=== PATIENT | male | born 1945 | race Caucasian/White ===

== ENCOUNTER → 2017-01-04 | Outpatient (CLI) | payer OTHER ==
[~2017-01-04] VITALS: Ht 172.7 cm; Wt 97.3 kg
[~2017-01-04] MED LIST: CELEBREX 200 M200 MG PO; CHANTIX1 MG PO; CLARITIN10 MG PO; CO Q-1010 MG PO; COZAAR 25 MG TA25 M1 PO; CYMBALTA60 MG PO; DESIPRAMINE HCL10 MG PO; DOLOPHINE HCL10 MG PO; FOLIC ACID1 MG PO; GABAPENTIN100 MG PO; GLUCOPHAGE500 MG PO; IRON325 PO; LOSARTAN-HCTZ1 EAC2 PO; LUNESTA3 MG PO; LYRICA 50 MG50 MG PO; LYRICA 75 MG CA75 MG PO; MEDROL DOSPAK21 TA1 PO; METHADONE HCL 110 M1 PO; METHADONE HCL5 MG PO; NEURONTIN 300300 M1 PO; NEURONTIN100 MG PO; NIACIN 500 MG500 M1 PO; OMEGA-31000 M1 PO; OMEGA-31000 MG PO; ONDANSETRON HCL4 M3 PO; OXCARBAZEPINE150 MG PO; PAMELOR10 MG PO; PREDNISONE 20 M20 MG PO; PRILOSEC 10MG C10 M1 PO; PROAIR HFA8.5 GM; SYMBICORT160 MCG/4. INH; VITAMIN E400 UNIT PO
--- NOTE | ~2017-01-04 | HPC ---
[facility] [place] [address] PAIN MANAGEMENT CONSULTATION Name: SHANDA ANTOINE Room #: REG [facility] JaeGiorgio.#: [id number] Admission: 01/04/17 Attend Phys: Addy Lainez MD Discharge: Date of : 49 Report #: [id number] THIS REPORT FOR: //name// CC: Addy Boateng DATE OF SERVICE: 01/04/2017 DATE OF REGISTRATION: 01/04/2017. REASON FOR VISIT: Followup visit for chronic severe peripheral neuropathy. SUBJECTIVE: The patient returns to pain clinic today for a followup visit. He is in the clinic for about 20 minutes. Pain is continuing in his feet. He describes it as severe. When asked the pain intensity, he says it is 12/10 like burning fire on his feet, although he is not using pain score correctly, his point is that the pain is still really severe despite his 25 mg of methadone per day. We have tried many other medications, methadone was the most effective what we have seen. He has not done very well with gabapentin. Today, we talked about transitioning to another anti-seizure medication as a trial, and I have suggested Trileptal 150 mg b.i.d. I am also going to change his methadone to 10 mg tablets 1 tablet 3 times a day, this will give him about 20% increase in his methadone as well. PHYSICAL EXAMINATION: GENERAL: He is pleasant, alert and oriented, shows no signs of overmedication. VITAL SIGNS: His blood pressure is 159/70, heart rate 76, respirations 20. EXTREMITIES: He has allodynia of the feet, decreased sensation, pins and needles and burning sensations with touch. IMPRESSION: 1. Severe peripheral neuropathy with diabetes. 2. Management of high-risk medication. By: [id number] Addy Lainez MD /nt
[2017-01-04 13:33] VITALS: BP 159/70
== END ==
LOC: PAIN 06:14
DX: E11.42 Type 2 diabetes mellitus with diabetic polyneuropathy (principal)

== ENCOUNTER → 2017-04-08 | Outpatient (CLI) | payer OTHER ==
[~2017-04-08] VITALS: Ht 175.3 cm; Wt 99.4 kg
[~2017-04-08] MED LIST changes: +ATIVAN0.5 MG PO
--- NOTE | ~2017-04-08 | HPC ---
[facility] [place] [address] PAIN MANAGEMENT CONSULTATION Name: SHANDA ANTOINE Room #: REG [facility] JaeGiorgioDemond.#: [id number] Admission: 04/08/17 Attend Phys: Addy Lainez MD Discharge: Date of : 47 Report #: [id number] THIS REPORT FOR: //name// CC: Addy CUETO DATE OF SERVICE: 04/08/2017 DATE OF SERVICE: 04/08/2017 Followup visit for medication management for chronic and severe peripheral neuropathy. The patient returns to pain clinic today and his was here with him. She reported independently that he has been miserable almost to tears with his pain. We have tried several medications. He has had multiple trials of neuropathic pain relievers. Most recently, Trileptal, which he was unable to tolerate well. I have given him methadone, which has been the only thing that has helped. I have increased it recently. He nonetheless complains of pain at about 8/10. Pain is quite severe with weightbearing. He has had cortisone injections with hopes that there may be a component of plantar fasciitis, this was not so helpful. He also has developed, what he describes as tired weakness in his legs. Pain is worse with standing and walking. He has recently been stressed due to of a family member. He continues to work. He avoids alcohol and tobacco. PHYSICAL EXAMINATION: Affect is mildly depressed. His blood pressure is 146/58, heart rate 79, respirations are 16, BMI is 32.4. He has some pain across his low back where he has had previous surgery in 2001. His bilateral lower leg pain beginning in the calves, symmetrical distribution with light touch discomfort. IMPRESSION: 1. Peripheral neuropathy. 2. Management of high risk medication. 3. Post-laminectomy syndrome. RECOMMENDATIONS: I will continue him on his methadone under terms of our agreement. He understands the importance of safeguarding all medications. We have talked each time about the opioid crisis in the [place] and the critical need for patients using medications under the direction of pain clinic to safeguard their medication. He shows no signs of addiction. [facility] [address] [place] [address] PAIN MANAGEMENT CONSULTATION Name: ANTOINESHANDA GALLAGHER [facility] [id number] Admission: 04/08/17 Attend Phys: Addy Lainez MD Discharge: Date of : 47 Report #: [id number] Methadone was renewed at a dose of 10 mg 3 times daily with release today prescriptions for 4 and 8 weeks. By: [id number] Addy Lainez MD /nt
[2017-04-08 13:40] VITALS: BP 146/58
== END ==
LOC: PAIN 07:08
DX: G62.9 Polyneuropathy, unspecified (principal)

== ENCOUNTER → 2017-07-05 | Outpatient (CLI) | payer OTHER ==
[~2017-07-05] VITALS: Ht 175.3 cm; Wt 98.4 kg
[~2017-07-05] MED LIST changes: +CLONIDINE HCL0.1 MG PO; +LOSARTAN POTAS100 MG PO; +NORVASC5 MG PO
--- NOTE | ~2017-07-05 | HPC ---
[facility] [place] [address] [place] [address] PAIN MANAGEMENT CONSULTATION Name: SHANDA ANTOINE Room #: REG NEELAM MoralesGiorgio#: [id number] Admission: 07/05/17 Attend Phys: Addy Lainez MD Discharge: Date of : 47 Report #: [id number] THIS REPORT FOR: //name// CC: Addy BOATENG DATE OF SERVICE: 07/05/[address] Steve Boateng. Followup visit for peripheral neuropathy. The patient presents to the pain clinic today and is doing better. I have encouraged him to get larger shoes and although this seems like a simple thing, I think that has had a lot to do with his decrease in pain. His pain score is a 3-4/10. He has had some recent increase in upper leg pain. He is being evaluated for vasculopathy. There may be a stenting procedure in the future. Did not pick this up on his physical exam earlier. The patient suffers from gastroesophageal reflux disease, nocturia, insomnia and depression. He has been better lately. PHYSICAL EXAMINATION: Blood pressure is 149/69, heart rate 72 and respirations 16. BMI 32.0. He is able to easily move from sitting to standing position and ambulate without too much difficulty. Pulses are diminished bilaterally in the lower extremities and palpable. Straight leg raising is negative. He has tenderness across the sole of his foot in the L5-S1 distribution. IMPRESSION: 1. History of chronic foot pain considered peripheral neuropathy. 2. Consideration of vasculopathy as a new pain generator. 3. Post-laminectomy syndrome with also consideration of radiculopathy. 4. Management of high risk medication under terms of an opioid agreement. PLAN: I renewed his methadone 10 mg 2 tablets in the morning and 1 tablet at bedtime for a total of 120 morphine milligram equivalents per day. Importance of safeguarding all medications discussed. Plan to follow up in the pain clinic in three months. By: [id number] Addy Lainez MD /nt
[2017-07-05 13:27] VITALS: BP 149/69
== END ==
LOC: PAIN 07:35
DX: M96.1 Postlaminectomy syndrome, not elsewhere classified (principal); Z79.899 Other long term (current) drug therapy

== ENCOUNTER → 2017-09-30 | Outpatient (CLI) | payer OTHER ==
[~2017-09-30] VITALS: Ht 175.3 cm; Wt 99.8 kg
[~2017-09-30] MED LIST changes: +HYTRIN 2MG CAPSU2 MG PO; +LISINOPRIL2.5 M1 PO; +VITAMIN D1000 UNI1 PO
--- NOTE | ~2017-09-30 | HPC ---
[facility] [place] [address] PAIN MANAGEMENT CONSULTATION Name: SHANDA ANTOINE Room #: REG Ethan Gillis#: [id number] Admission: 09/30/17 Attend Phys: Addy Lainez MD Discharge: Date of : 47 Report #: [id number] THIS REPORT FOR: //name// CC: Addy CUETO DATE OF SERVICE: 09/30/2017 REASON FOR VISIT: Followup visit for severe peripheral neuropathy. HISTORY OF PRESENT ILLNESS: The patient returns to pain clinic for renewal of his medications. He has been on a stable dose of methadone, which has provided good control of his neuropathy. He had a trial recently where he tried to go off his methadone. He noted significant increases in his peripheral neuropathy pain, so much so that he was unable to bear weight on his feet. Currently, he takes his medication 20 mg in the morning and 10 mg at bedtime. Now, the calculation for methadone is 4:1 for morphine, so this is 120 morphine milligram equivalents. We have found that this correlation seems not to work very well for patients who showed no significant side effects or evidence of overmedication. There is no craving for this drug. There is no evidence of drug seeking. He simply grateful for the pain relief that it provides. He denies any significant side effects. He is unable to take other medications including anti-inflammatory drugs due to gastroesophageal reflux disease. We have tried a number of other neuropathic medicines and settled on a combination of methadone along with gabapentin, which has worked fairly effectively now for several years. We reviewed his written opioid agreement, the CDC guideline and the opioid crisis in the [place]. He understands clearly his responsibilities. PQRS REVIEW: Shows the patient has primarily neuropathy, not arthritis, other than some temporomandibular joint pain, which is considered osteoarthritis of that joint. He has not gained any weight, but his weight is slightly above the obesity level at 32.5 BMI. Blood pressure is 142/64 and heart rate 85. He is on medication chronically for blood pressure. MEDICATIONS: All medications were reviewed and reconciled from the electronic medical record. Risk assessment tool was completed as well as functional assessment tool in this visit. Buccal drug screen sent as it has been sometimes since we have had one. He does not smoke or drink alcohol. IMPRESSION: 1. Chronic peripheral neuropathy, severe, secondary to diabetes. 2. Management of high risk medication. [address] [address] PAIN MANAGEMENT CONSULTATION Name: SHANDA ANTOINE Room #: REG NEELAM Elis#: [id number] Admission: 09/30/17 Attend Phys: Addy Lainez MD Discharge: Date of : 47 Report #: [id number] PLAN: We will renew his methadone 20 mg 3 tablets per day. Gabapentin 300 mg 2 tablets in the morning and 1 in evening are well tolerated. No significant side effects address today. Followup visit planned in 3 months. <ELECTRONICALLY SIGNED> By: Addy Lainez MD 11/08/17 [id number] Addy Lainez MD /tisha
[2017-09-30 12:43] VITALS: BP 142/64
== END ==
LOC: PAIN 07:29
DX: E11.40 Type 2 diabetes mellitus with diabetic neuropathy, unspecified (principal); Z79.899 Other long term (current) drug therapy

== ENCOUNTER → 2018-01-06 | Outpatient (CLI) | payer OTHER ==
[~2018-01-06] VITALS: Ht 177.8 cm; Wt 99.8 kg
--- NOTE | ~2018-01-06 | HPC ---
[facility] [address] PAIN MANAGEMENT CONSULTATION Name: SHANDA ANTOINE [facility] #: [facility] [id number] Admission: 01/06/18 Attend Phys: Addy Lainez MD Discharge: Date of : 47 Report #: [id number] THIS REPORT FOR: //name// CC: Physician staff Addy Boateng DATE OF SERVICE: 01/06/2018 Followup visit for severe peripheral neuropathy. This is a routine followup for the patient at 3-month intervals. He is under treatment for severe neuropathy and has done well with gabapentin in combination with methadone. He has been chronically on methadone 30 mg a day. Although the CDC guidelines suggest that methadone is 4:1 in its potency in its relationship to morphine. I had a long discussion yesterday with Dr. Noriega who also manages his pain medications. He has been using the factor of 1:1. This is based upon information that he obtained one training at [facility]. I would have to agree that 4:1 seems to be an unrealistic number for most of our patients on methadone. They did not show any signs of oversedation and in fact, I have a number of patients who are in their 80s and 90s who use methadone effectively as a pain management tool for neuropathic pain conditions. The patient is certainly one of those people who manages his pain effectively with a very stable dose of methadone. He takes 2 in the morning, 1 in the evening. In addition, he uses gabapentin 1200 mg a day in divided dose and has no significant side effects. His chronic pain that he has accepted his pain score is a 6/10. His PQRS review is as follows: He complains of some arthritis, but only in the temporomandibular joints. He has no other joints that can cause him pain. He is managing his weight close to a BMI of 31.6 today. He is under treatment for hypertension by his primary care physician and takes a daily dose of amlodipine and uses a clonidine as well. This works effectively. He was recently started on losartan. He is not a fall risk. He signed an opioid contract at the initiation of therapy several years ago. We had him review at his last visit in September. His risk assessment tool has been completed and is at low risk for any addictive concerns. Functional assessment score 27/70. After years of discussion, he has finally continued through a tapering process. He is now off of tobacco completely. I gave him supportive suggestions today in order to make sure that there is no fall back. Physical examination also demonstrates localized tenderness of the feet with some mild allodynia. [address] [address] PAIN MANAGEMENT CONSULTATION Name: SHANDA ANTOINE Room #: REG [facility] Elis#: [id number] Admission: 01/06/18 Attend Phys: Addy Lainez MD Discharge: Date of : 47 Report #: [id number] IMPRESSION: 1. Chronic peripheral neuropathy secondary to diabetes. 2. Temporomandibular joint arthritis. 3. Management of methadone and gabapentin under terms of written opioid agreement. PLAN: We renewed our agreement today. Discussed the importance of safeguarding medications. Prescriptions were written for 3 months. I will see him back in April. By: [id number] Addy Lainez MD /nt
[2018-01-06 12:33] VITALS: BP 140/95
== END ==
LOC: PAIN 06:56
DX: G62.9 Polyneuropathy, unspecified (principal); M26.69 Other specified disorders of temporomandibular joint; Z79.899 Other long term (current) drug therapy

== ENCOUNTER → 2018-06-30 | Outpatient (CLI) | payer OTHER ==
[~2018-06-30] VITALS: Ht 177.8 cm; Wt 102.2 kg
[~2018-06-30] MED LIST changes: +NEURONTIN600 MG PO
--- NOTE | ~2018-06-30 | HPC ---
[facility] [place] [address] PAIN MANAGEMENT CONSULTATION Name: ELINASHANDA GALLAGHER Room #: [facility] [id number] Admission: 06/30/18 Attend Phys: Karlie Lea Discharge: Date of : 47 Report #: [id number] THIS REPORT FOR: //name// CC: Karlie Lea Physician staff IVONNE CUETO DATE OF SERVICE: 06/30/2018 Followup visit today for peripheral neuropathy. HISTORY OF PRESENT ILLNESS: This is a very pleasant 72-year-old who has recently been in the hospital about a flu that he had. He tells me that he needed blood transfusion because he becomes so dehydrated. He is also currently taking prednisone since this hospitalization. He also tells me that he has been undergoing a procedure in [place] in a neuropathy clinic that he had discussed with Dr. Lainez called [facility] ? system that he is going to have at least 24 treatments. He still has 10 more treatments to go because he had missed some time with hospitalization and out of town for a recent wedding. He tells me due to this treatment that he has been getting his burning is completely gone in his feet when he is standing. He still does have some tightness in his calves, but he does complain of a pain score of 5/10, mostly when he is walking. He would love to get rid of the tightness in his calves, the stiffness cramping that he feels that his feet are feeling much better. He currently is controlled with methadone 15 mg in the morning and 10 at night. The patient wishes to have his medications refilled with all the other health changes going on. He would try to decrease in the future, but not until his treatments are over. The patient also tells me he does not have any problems with constipation or daytime sleepiness. ALLERGIES: No known drug allergies. CURRENT LIST OF MEDICATION: Prednisone 20 mg daily, methadone 15 in the morning and 10 at night, gabapentin 600 mg twice a day, Cozaar 25 mg, lisinopril 2.5 mg daily, vitamin D, Hytrin 2 mg tablets, clonidine 0.1 as needed, Norvasc 5 mg daily, desipramine 10 mg at bedtime, Ativan 0.5 twice a day as needed, Symbicort twice a day, albuterol inhaler as needed and omeprazole 10 mg daily. PQRS: 1. 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 Denies rheumatoid arthritis. 2. Height is 5 feet 10 inches, weight is 225 pounds, BMI is 32.3. 3. Vital signs: Blood pressure 146/54, pulse is 72, respirations 20, oxygen sat is 100. 4. Pain score is 5/10. 5. Denies dizziness. Does not need help walking or [place] [address] PAIN MANAGEMENT CONSULTATION Name: ELINASHANDA GALLAGHER [facility] [id number] Admission: 06/30/18 Attend Phys: Karlie Lea Discharge: Date of : 47 Report #: [id number] in the last 3 months. 6. The patient is not on a blood thinner, but does have a history of antihypertension medications. 7. The patient is on opioid therapy greater than 6 weeks; therefore, an opioid signed contract is on the chart. 8. His risk assessment tool is low and his functional assessment is 27/70. The patient denies recreational drug use. Does smoke cigarettes on a daily basis and does not drink any alcohol. We did check the [place] prescription monitoring system. The patient is filling appropriate from Dr. Addy Lainez. No aberrant behaviors. He does tell me he safeguards his medications. A recent urine drug screen is on the chart and is appropriate. PHYSICAL EXAMINATION GENERAL: This is a pleasant, alert 72-year-old gentleman without signs of overmedication. He is alert and orientated and his affect is appropriate. HEENT: Normocephalic, atraumatic. Extraocular eye muscles are intact. Mucous membranes are moist. Hearing is adequate. NECK: No JVD or adenopathy. Range of motion is adequate, has some tenderness in his bilateral feet. Denies burning, cramping is present in his calves. Muscle strength is judged to be 5/5 bilateral in all major muscle groups bilaterally in his lower extremities. IMPRESSION: 1. Chronic intractable pain with peripheral neuropathy secondary to diabetes. 2. Management of high risk medication. We reviewed the fact that opiate medications are being used to provide analgesia adequate to support activities of daily living, not attempting to achieve a specific pain score on the 0-10 Visual Analog Scale. The current opiate medications are providing sufficient analgesia to allow the patient to participate in activities of daily living. The patient is not exhibiting any aberrant behavior suggestive of drug diversion. The patient is not having any adverse reactions to medications. The patient is not suffering from daytime somnolence or mental acuity changes. The patient is managing opiate-induced constipation with appropriate urth-sga-zfdiwiq agents and dietary considerations. The patient was counseled on concern for caution with operating a motor vehicle while using opiate medications. A physical exam was performed and the patient's functional status was evaluated. All patients with back pain were advised against the bed rest greater than 4 days and were advised to return to normal activities. Pain score assessment was noted and the treatment plan was reviewed with the patient. All current medications, both prescribed and OTC were reviewed and reconciled on the electronic medical record. Tobacco screening was accomplished and smoking cessation was advised when indicated. BMI was noted and diet/exercise modification was recommended for all patients following outside normal [facility] [address] [place] [address] PAIN MANAGEMENT CONSULTATION Name: ANTOINESHANDA GALLAGHER Room #: [facility]#: [id number] Admission: 06/30/18 Attend Phys: Karlie Lea Discharge: Date of : 47 Report #: [id number] parameters. I reviewed with the patient today their responsibilities to safeguard prescription medications, reviewed their responsibility to utilize medications only as prescribed by the physician. They are to seek and receive pain medications only from 1 physician group ( [facility]). They are to use 1 pharmacy and keep the clinic informed if they change pharmacies. Their responsibilities include making followup visits in a timely fashion and to avoid abrupt discontinuation of medication usage. Their responsibilities further include bringing their medications (bottles from the pharmacy with residual pills) to the visit for possible confirmation of pill counts and the patient understands it is their responsibility to submit to random drug screens to ensure both that the medications prescribed are present, and that no other controlled substances are present. All prescriptions provided today were generated electronically. PLAN: 1. The patient is here for medication renewal today his medication was decreased by 20% last time. The patient continues to do well with his current methadone dose. He has had a recent hospitalization and continues his electric current and anesthetic therapy in [place]. So at this time, we will remain with his current dose and possibly decrease in the next 3 months after he has been feeling better and has been off his prednisone and has completed these treatments. The patient is agreeable with this plan of care. 2. Methadone 10 mg tablets, #75 were given for today, 4-week and 8-week; gabapentin 600 mg tablets twice a day, #60 with 2 additional refills were also given. The patient will follow up in 3 months' time with me for an appointment and then will see Dr. Lainez after that for subsequent appointment. Care today was given with collaboration with Dr. Addy Lainez. <ELECTRONICALLY SIGNED> By: Karlie Lea 07/01/18 1010 1401 [id number] Karlie Lea /nt
[2018-06-30 12:49] VITALS: BP 146/54
== END ==
LOC: PAIN 09:28
DX: E11.42 Type 2 diabetes mellitus with diabetic polyneuropathy (principal); G62.9 Polyneuropathy, unspecified; G89.4 Chronic pain syndrome; Z79.899 Other long term (current) drug therapy

== ENCOUNTER → 2018-09-15 | Outpatient (CLI) | payer OTHER ==
[~2018-09-15] VITALS: Ht 177.8 cm; Wt 100.1 kg
[~2018-09-15] MED LIST changes: +DOXYCYCLINE 10100 MG PO; +GABAPENTIN600 M1 PO
[2018-09-15 12:54] VITALS: BP 139/65
--- NOTE | 2018-09-15 13:14 | NUR ---
Pain Clinic Assessment: 1. 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 Height: 5 ft. 10 in. 177.8 cm. Weight: 220.6 lb. oz. 100.064 kg. Patient's BMI: 31.7 3. Vital Signs: BP: 139/65 Pulse: 67 Resp: 18 Temp: 02 Sat: 98 ECG Mon: 4. Pain Intensity: 6 5. Fall Risk: Dizziness: N Needs help standing or walking: N Fallen in the last 3 months: N Fall risk comments: 6. Patient on Blood Thinner: None 7. History of Hypertension: Y 8. Opioid Therapy greater than 6 weeks: Y Opiate Contract Signed: 09/30/17 9. Risk Assessment Tool Provided: 3-low risk 10. Functional Assessment Tool: 11. Recreational Drug Use: Never Drug Type: Tobacco Use: Current Every Day Smoker Tobacco Type: Amount or Packs/day: How Many Years: Alcohol Use: No Frequency: Quant:
--- NOTE | 2018-09-16 07:59 | HPC ---
[facility] [address] [address] PAIN MANAGEMENT CONSULTATION Name: ELINASHANDA GALLAGHER [facility] #: [facility] [id number] Admission: 09/15/18 Attend Phys: Karlie Lea Discharge: Date of : 49 Report #: [id number] THIS REPORT FOR: //name// CC: Karlie Lea Physician staff IVONNE CUETO DATE OF SERVICE: 09/15/2018 CHIEF COMPLAINT: Peripheral neuropathy. HISTORY OF PRESENT ILLNESS: This is a very pleasant 73-year-old gentleman who returns to the pain clinic today for refill of his medications that he takes for his ongoing neuropathy. He tells me that he has finished his [employer] neoGEN injection that he was getting in [place] for his neuropathy. He tells me that he finished his 24 sessions on 08/19/2018. He thinks that helped about 80%. He has been trying to decrease his gabapentin and his methadone. Currently, he has tried 600 gabapentin in the morning and 300 at night and methadone twice a day. His pain has increased slightly and he was seeking our opinion of what he should do since his pain has returned in his calves. His feet still continue to be better. Pain score today is 6/10. Denies any constipation or daytime sleepiness. He said his pain is worse when he has been standing for prolonged periods. Feels like there is a crampy stiffness in his legs. ALLERGIES: No allergies. MEDICATIONS: Doxycycline 100 mg daily; 600 mg of gabapentin b.i.d.; methadone 10 mg in the morning, 5 midday, 10 at night; prednisone 20 mg daily; Cozaar 25 mg daily; lisinopril 2.5 mg daily; vitamin D daily; Hytrin 2 mg at bedtime; clonidine 0.1 mg as needed; amlodipine 5 mg daily; desipramine 10 mg at bedtime; lorazepam as needed; Symbicort daily; albuterol inhaler as needed; omeprazole 10 mg daily. PQRS: 1. 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 Denies rheumatoid arthritis. 2. Height 5 feet 10 inches, weight is 220, BMI 31.7. 3. Vital signs: Blood pressure 131/65, pulse is 67, respirations 18, oxygen sat is 98%. 4. Pain score 6/10. 5. Dizziness, he denies. He does not keep walking or standing, has not fallen in the last 3 months. 6. Blood thinner. He does not take. He has a history of hypertension. 7. Opiate therapy is greater than 6 weeks. Therefore, no opioid signed contract is on the chart. 8. Risk assessment tool is low. Functional assessment is . Recreational drug use, he denies. He is a current smoker. He does not drink alcohol. We [facility] [address] [place] [address] PAIN MANAGEMENT CONSULTATION Name: ELINASHANDA GALLAGHER Room #: REG Ethan Gillis#: [id number] Admission: 09/15/18 Attend Phys: Karlie Lea Discharge: Date of : 49 Report #: [id number] did check the prescription monitoring system. The patient is filling appropriately all his medications in a timely manner. His recent drug screen on the chart. He tells me that he safeguards his medications. PHYSICAL EXAMINATION GENERAL: This is a pleasant and alert 73-year-old gentleman who appears his stated age. He is alert and oriented and his affect is appropriate. HEENT: Normocephalic, atraumatic. Extraocular eye muscles are intact. Mucous membranes are moist. Hearing is adequate. NECK: Without JVD or adenopathy. MUSCULOSKELETAL: He has some burning and tingling in his feet. This is significantly decreased. He does complain of some tenderness in his calves and cramping. His muscle strength is judged to be 5/5 bilaterally in all major muscle groups. IMPRESSION: 1. Chronic intractable pain with peripheral neuropathy secondary to diabetes. 2. Management of high risk medications under terms of written opioid agreement. We reviewed the fact that opiate medications are being used to provide analgesia adequate to support activities of daily living, not attempting to achieve a specific pain score on the 0-10 Visual Analog Scale. The current opiate medications are providing sufficient analgesia to allow the patient to participate in activities of daily living. The patient is not exhibiting any aberrant behavior suggestive of drug diversion. The patient is not having any adverse reactions to medications. The patient is not suffering from daytime somnolence or mental acuity changes. The patient is managing opiate-induced constipation with appropriate cvqu-gxk-kuupfii agents and dietary considerations. The patient was counseled on concern for caution with operating a motor vehicle while using opiate medications. A physical exam was performed and the patient's functional status was evaluated. All patients with back pain were advised against the bed rest greater than 4 days and were advised to return to normal activities. Pain score assessment was noted and the treatment plan was reviewed with the patient. All current medications, both prescribed and OTC were reviewed and reconciled on the electronic medical record. Tobacco screening was accomplished and smoking cessation was advised when indicated. BMI was noted and diet/exercise modification was recommended for all patients following outside normal parameters. I reviewed with the patient today their responsibilities to safeguard prescription medications, reviewed their responsibility to utilize medications only as prescribed by the physician. They are to seek and receive pain medications only from 1 physician group ( [facility]). They are to use 1 pharmacy and keep the clinic informed if they change pharmacies. Their [facility] [address] [place] [address] PAIN MANAGEMENT CONSULTATION Name: SHANDA ANTOINE [facility] [id number] Admission: 09/15/18 Attend Phys: Karlie Lea Discharge: Date of : 49 Report #: [id number] responsibilities include making followup visits in a timely fashion and to avoid abrupt discontinuation of medication usage. Their responsibilities further include bringing their medications (bottles from the pharmacy with residual pills) to the visit for possible confirmation of pill counts and the patient understands it is their responsibility to submit to random drug screens to ensure both that the medications prescribed are present, and that no other controlled substances are present. All prescriptions provided today were generated electronically. PLAN: 1. We discussed treatment options with the patient today. He tells me he has finished with his electric current stimulation that he had in [place]. He feels that he is 80% better in his feet. He has been trying to taper off the gabapentin or methadone, feels that he is not able to decrease it as much as he has tried. His pain has returned, today rating it a 6/10. 2. We decided on a plan that the patient will take his gabapentin 600 in the morning and 600 at night and try to decrease his methadone to 10 mg b.i.d. If that is not helpful, then the patient will return to his methadone 10 in the morning, 5 midday and 10 at night. Scripts given today for his methadone #75 for today for 8 weeks and gabapentin 600 mg b.i.d. #60 with 2 additional refills. If patient is able to decrease his medications, will last him longer than 3 months. At that time, he will make an appointment and we will readjust his prescriptions if he is able to decrease his medications. The patient seen under collaboration today under Dr. Addy Lainez. <ELECTRONICALLY SIGNED> By: Karlie Lea 09/16/18 0759 [id number] Karlie Lea /tisha
== END ==
LOC: PAIN 07:08
DX: G62.9 Polyneuropathy, unspecified (principal); G89.4 Chronic pain syndrome; Z79.899 Other long term (current) drug therapy; Z87.891 Personal history of nicotine dependence

== ENCOUNTER → 2018-11-24 | Outpatient (CLI) | payer OTHER ==
[~2018-11-24] VITALS: Ht 177.8 cm; Wt 97.8 kg
[2018-11-24 13:05] VITALS: BP 143/53
--- NOTE | 2018-11-24 13:19 | NUR ---
Pain Clinic Assessment: 1. 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 Height: 5 ft. 10 in. 177.8 cm. Weight: 215.6 lb. oz. 97.796 kg. Patient's BMI: 30.9 3. Vital Signs: BP: 143/53 Pulse: 70 Resp: 14 Temp: 02 Sat: 97 ECG Mon: 4. Pain Intensity: 5 5. Fall Risk: Dizziness: N Needs help standing or walking: N Fallen in the last 3 months: N Fall risk comments: 6. Patient on Blood Thinner: None 7. History of Hypertension: Y 8. Opioid Therapy greater than 6 weeks: Y Opiate Contract Signed: 09/30/17 9. Risk Assessment Tool Provided: 3-low risk 10. Functional Assessment Tool: 11. Recreational Drug Use: Never Drug Type: Tobacco Use: Current Every Day Smoker Tobacco Type: Cigarettes Amount or Packs/day: 1 CIG DAY How Many Years: 50 Alcohol Use: No Frequency: Quant:
--- NOTE | 2018-11-25 07:49 | HPC ---
[facility] [address] [place] [address] PAIN MANAGEMENT CONSULTATION Name: ELINASHANDA GALLAGHER Room #: REG [facility] [id number] Admission: 11/24/18 ������������������ Attend Phys: Karlie Lea Discharge: ������������������ Date of : 49 Report #: [id number] THIS REPORT FOR: //name// CC: Karlie Lea Physician staff IVONNE CUEOT DATE OF SERVICE: 11/24/2018 CHIEF COMPLAINT: Peripheral neuropathy. HISTORY OF PRESENT ILLNESS: This is a very pleasant 73-year-old gentleman who returns to the pain clinic today for refill of his medications for his neuropathy. He tells me that his pain score today is 5/10, complains that the pain is in his feet, worse with walking and better with his medication and sitting. He tells me that he would like to restart his walks, but his neuropathy has increased slightly again in his feet, he had last year gone to [place], [place] for treatments of [employer] neoGEN or injections that he got twice a week. He tells me he is going to restart that in November, hopefully only once a week and will get improvement from this again. During that time, he was able to decrease his methadone and his gabapentin. He has returned to his current dose of gabapentin, but continues to be on the lower dose of methadone, which he would like a refill of that medicine today. ALLERGIES: No known drug allergies. MEDICATIONS: Gabapentin 600 mg b.i.d., methadone 50 mg in the morning and 10 mg at night, doxycycline daily, prednisone 20 mg b.i.d., losartan 25 mg daily, lisinopril 2.5 mg daily, vitamin D daily, Hytrin 2 mg at bedtime, clonidine 0.1 mg p.r.n., amlodipine 5 mg daily, desipramine 10 mg at bedtime, lorazepam 0.5 mg b.i.d., Symbicort daily, ProAir as needed, and Prilosec 10 mg daily. PQRS: 1. 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 Denies any rheumatoid arthritis. 2. Height is 5 feet 10 inches, weight is 215, BMI is 30. 3. Vital signs: Blood pressure 143/53, pulse is 70, respirations 14, oxygen sat is 97. 4. Pain score is 5/10. 5. Fall risk: Denies dizziness. Does not need help walking or standing. He has not fallen in the last 3 months. 6. The patient is not on any blood thinners. He does have a history of hypertension. 7. Opiate therapy is greater than 6 weeks; therefore, an opioid signed contract is on the chart. 8. Risk assessment tool is low. Functional assessment is 27/70. Recreational [address] [address] PAIN MANAGEMENT CONSULTATION Name: ELINASHANDA GALLAGHER [facility]: [facility] [id number] Admission: 11/24/18 ������������������ Attend Phys: Karlie Lea Discharge: ������������������ Date of : 49 Report #: [id number] drug use, he denies. Currently, he smokes about 1 cigarettes a day and does not drink alcohol. We checked the prescription monitoring system on this patient. He is slightly early for his medications, but he is here with his for her visit today as well. There is a drug screen in the past year on this patient's chart that is appropriate and he tells me that he safeguards his medications. PHYSICAL EXAMINATION: GENERAL: A pleasant and alert 73-year-old gentleman who appears his stated age. HEENT: Normocephalic, atraumatic. Extraocular eye muscles are intact. Mucous membranes are moist. NECK: Without JVD or adenopathy. MUSCULOSKELETAL: Complains of burning and tingling in his bilateral feet. His muscle strength judged to be 5/5 bilaterally in all major muscle groups. IMPRESSION: 1. Chronic intractable pain with peripheral neuropathy secondary to diabetes. 2. Management of high risk medication under terms of written opioid agreement. We reviewed the fact that opiate medications are being used to provide analgesia adequate to support activities of daily living, not attempting to achieve a specific pain score on the 0-10 Visual Analog Scale. The current opiate medications are providing sufficient analgesia to allow the patient to participate in activities of daily living. The patient is not exhibiting any aberrant behavior suggestive of drug diversion. The patient is not having any adverse reactions to medications. The patient is not suffering from daytime somnolence or mental acuity changes. The patient is managing opiate-induced constipation with appropriate lwkm-egt-cirabki agents and dietary considerations. The patient was counseled on concern for caution with operating a motor vehicle while using opiate medications. A physical exam was performed and the patient's functional status was evaluated. All patients with back pain were advised against the bed rest greater than 4 days and were advised to return to normal activities. Pain score assessment was noted and the treatment plan was reviewed with the patient. All current medications, both prescribed and OTC were reviewed and reconciled on the electronic medical record. Tobacco screening was accomplished and smoking cessation was advised when indicated. BMI was noted and diet/exercise modification was recommended for all patients following outside normal parameters. I reviewed with the patient today their responsibilities to safeguard prescription medications, reviewed their responsibility to utilize medications only as prescribed by the physician. They are to seek and receive pain medications only from 1 physician group ( [facility]). They are to use 1 [facility] [address] [place] [address] PAIN MANAGEMENT CONSULTATION Name: SHANDA ANTOINE Room #: REG [facility].#: [id number] Admission: 11/24/18 ������������������ Attend Phys: Karlie Lea Discharge: ������������������ Date of : 49 Report #: [id number] pharmacy and keep the clinic informed if they change pharmacies. Their responsibilities include making followup visits in a timely fashion and to avoid abrupt discontinuation of medication usage. Their responsibilities further include bringing their medications (bottles from the pharmacy with residual pills) to the visit for possible confirmation of pill counts and the patient understands it is their responsibility to submit to random drug screens to ensure both that the medications prescribed are present, and that no other controlled substances are present. All prescriptions provided today were generated electronically. PLAN: 1. We discussed treatment options with the patient today. The patient is going to restart his injection treatments in [place] next month, hopefully to decrease some of his neuropathy that has slowly returned. 2. Scripts given today for his methadone 10 mg tablets #75 for today release and 4-week release as well as gabapentin 600 mg b.i.d. #60 with one additional refill. The patient is not quite due for his methadone yet, but here with his and he will continue on every 2-month period to see us, even though his CDC guidelines places him at 75 morphine milliequivalents. He will come every [address] Addy Lainez did see the patient and collaborated care today as well. ��������������������������������������������� <ELECTRONICALLY SIGNED> ���������������������������������������� By: Karlie Lea ��������������������������������������������� 11/25/18 0749 [id number] Karlie Lea /nt
== END ==
LOC: PAIN 07:11
DX: G89.29 Other chronic pain (principal); E11.42 Type 2 diabetes mellitus with diabetic polyneuropathy; M19.90 Unspecified osteoarthritis, unspecified site; Z79.899 Other long term (current) drug therapy; Z79.891 Long term (current) use of opiate analgesic

== ENCOUNTER → 2019-01-19 | Outpatient (CLI) | payer OTHER ==
[~2019-01-19] VITALS: Ht 177.8 cm; Wt 99.8 kg
[2019-01-19 10:28] VITALS: BP 145/62
--- NOTE | 2019-01-19 10:49 | NUR ---
Pain Clinic Assessment: 1. 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 Height: 5 ft. 10 in. 177.8 cm. Weight: 220.0 lb. oz. 99.792 kg. Patient's BMI: 31.6 3. Vital Signs: BP: 145/62 Pulse: 64 Resp: 16 Temp: 02 Sat: 99 ECG Mon: 4. Pain Intensity: 6 5. Fall Risk: Dizziness: N Needs help standing or walking: N Fallen in the last 3 months: Y Fall risk comments: 6. Patient on Blood Thinner: None 7. History of Hypertension: Y 8. Opioid Therapy greater than 6 weeks: Y Opiate Contract Signed: 09/30/17 9. Risk Assessment Tool Provided: 3-low risk 10. Functional Assessment Tool: 11. Recreational Drug Use: Never Drug Type: Tobacco Use: Current Every Day Smoker Tobacco Type: Cigarettes Amount or Packs/day: 0.5 How Many Years: 58 Alcohol Use: No Frequency: Quant:
--- NOTE | 2019-01-19 15:49 | HPC ---
[facility] [address] [place] [address] PAIN MANAGEMENT CONSULTATION Name: ELINASHANDA GALLAGHER [facility] [id number] Admission: 01/19/19 ������������������ Attend Phys: Karlie Lea Discharge: ������������������ Date of : 49 Report #: [id number] THIS REPORT FOR: //name// CC: Karlie Lea Physician staff IVONNE CUETO DATE OF SERVICE: 01/19/2019 CHIEF COMPLAINT: Peripheral neuropathy. HISTORY OF PRESENT ILLNESS: This is a very pleasant 73-year-old gentleman who returns to the pain clinic today for refill of his medication that he uses to help treat his neuropathy in his bilateral feet and calves. He tells me his pain score today is 6/10, worse with walking, but his medication and sitting are very helpful. He tells me that he is continuing to have his treatments in [place]. His [place] [facility] treatments twice a week for maintenance. He feels that they are very beneficial in relieving some of his foot pain. He mostly complains of stiffness and cramping and fatigue in his feet. The patient reports he fell, going down the steps last Wednesday and fractured his elbow and bruised the side of his right chest and right hip. He tells me he does not require any surgery, but his arm is in a sling today. He tells me he just turned and missed the last step, I believe this may be also because he has decreased proprioception in his feet that may have caused this not knowing exactly where he was in time and space. ALLERGIES: No known drug allergies. CURRENT LIST OF MEDICATIONS: Methadone 10 mg one and a half in the morning, one at night; gabapentin 600 mg b.i.d.; doxycycline; Cozaar; lisinopril; vitamin D; Hytrin; clonidine; amlodipine; desipramine; lorazepam; Symbicort; albuterol and omeprazole. 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 Denies any rheumatoid arthritis. Height is 5 feet 10 inches, weight is 220 pounds, BMI is 31. Vital signs: Blood pressure 145/62, pulse is 64, respirations 16, oxygen sat is 99, pain score is 6/10. Fall risk: Denies dizziness. Does not need help walking or standing, has fallen in the last three months. The patient is not on any blood thinners, though he does take medicine for hypertension. Opioid therapy is greater than six weeks; therefore, an opioid signed contract is on the chart. His risk assessment tool is low. Functional assessment 27/70. Recreational drug use: He denies. He currently smokes about a half a pack of cigarettes a day and he does not drink alcohol. We did check the prescription monitoring system[place] [address] PAIN MANAGEMENT CONSULTATION Name: ANTOINESHANDA GALLAGHER [facility]: [facility] [id number] Admission: 01/19/19 ������������������ Attend Phys: Karlie Lea Discharge: ������������������ Date of : 47 Report #: [id number] appropriately at [facility]. We will check a random drug screen on the patient today since it has been greater than a year since that has done last. He tells me he does safeguard his medications. PHYSICAL EXAMINATION: GENERAL: This is a very pleasant and alert 73-year-old gentleman who appears his stated age. He is alert and oriented, placing his pain score today at 6/10. HEENT: Normocephalic, atraumatic. Extraocular eye muscles are intact. Mucous membranes are moist. NECK: Without JVD or adenopathy. MUSCULOSKELETAL: Complains of burning and tingling in his bilateral feet. He has decreased proprioception in his bilateral feet from his neuropathy. His lower extremity strength judged to be 5/5 in all major muscle groups. His right arm is in a sling today. He has various stages of ecchymosis noted on his forearm. Bruising also noted on his trunk on the right side of his chest. The patient states he has bruises on his hip as well. Those were not observed today. IMPRESSION: 1. Chronic intractable pain with peripheral neuropathy secondary to diabetes. 2. Management of high-risk medications under terms of written opioid agreement. We reviewed the fact that opiate medications are being used to provide analgesia adequate to support activities of daily living, not attempting to achieve a specific pain score on the 0-10 Visual Analog Scale. The current opiate medications are providing sufficient analgesia to allow the patient to participate in activities of daily living. The patient is not exhibiting any aberrant behavior suggestive of drug diversion. The patient is not having any adverse reactions to medications. The patient is not suffering from daytime somnolence or mental acuity changes. The patient is managing opiate-induced constipation with appropriate bjig-rce-ypahurv agents and dietary considerations. The patient was counseled on concern for caution with operating a motor vehicle while using opiate medications. A physical exam was performed and the patient's functional status was evaluated. All patients with back pain were advised against the bed rest greater than 4 days and were advised to return to normal activities. Pain score assessment was noted and the treatment plan was reviewed with the patient. All current medications, both prescribed and OTC were reviewed and reconciled on the electronic medical record. Tobacco screening was accomplished and smoking cessation was advised when indicated. BMI was noted and diet/exercise modification was recommended for all patients following outside normal parameters. I reviewed with the patient today their responsibilities to safeguard prescription medications, reviewed their responsibility to utilize medications [facility] [address] [place] [address] PAIN MANAGEMENT CONSULTATION Name: SHANDA ANTOINE Room #: REG [facility].#: [id number] Admission: 01/19/19 ������������������ Attend Phys: Karlie Lea Discharge: ������������������ Date of : 47 Report #: [id number] only as prescribed by the physician. They are to seek and receive pain medications only from 1 physician group ( [facility]). They are to use 1 pharmacy and keep the clinic informed if they change pharmacies. Their responsibilities include making followup visits in a timely fashion and to avoid abrupt discontinuation of medication usage. Their responsibilities further include bringing their medications (bottles from the pharmacy with residual pills) to the visit for possible confirmation of pill counts and the patient understands it is their responsibility to submit to random drug screens to ensure both that the medications prescribed are present, and that no other controlled substances are present. All prescriptions provided today were generated electronically. PLAN: 1. We discussed treatment options with him today. The patient tells me that overall, he is doing quite well with his current medication regimen. His pain has increased since his fall this week. He has been taking some ibuprofen sparingly. Otherwise, he is currently just taking his methadone for pain. They did not give him any additional pain medicine at the orthopedic doctors. 2. Script was given today for methadone 10 mg, #75, one and a half in the morning, one at night for today and 4-week release and gabapentin 600 mg b.i.d., #60 with one additional refill. 3. Dr. Addy Lainez did come and see the patient today in collaborated care. The patient will return in two months for his medication refills. 4. We did encourage him to use heat and ice and his ibuprofen sparingly and to rest and not overdo it since his recent fall, which he tends to do. ��������������������������������������������� <ELECTRONICALLY SIGNED> ���������������������������������������� By: Karlie Lea ��������������������������������������������� 01/19/19 1549 [id number] Karlie Lea /nt
== END ==
LOC: PAIN 06:54
DX: E11.42 Type 2 diabetes mellitus with diabetic polyneuropathy (principal); G62.9 Polyneuropathy, unspecified; G89.4 Chronic pain syndrome; Z79.891 Long term (current) use of opiate analgesic; Z79.899 Other long term (current) drug therapy

== ENCOUNTER → 2019-03-16 | Outpatient (CLI) | payer OTHER ==
[~2019-03-16] VITALS: Ht 177.8 cm; Wt 97.2 kg
[2019-03-16 12:40] VITALS: BP 145/57
--- NOTE | 2019-03-16 12:45 | NUR ---
Pain Clinic Assessment: 1. 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 Height: 5 ft. 10 in. 177.8 cm. Weight: 214.2 lb. oz. 97.161 kg. Patient's BMI: 30.7 3. Vital Signs: BP: 145/57 Pulse: 66 Resp: 16 Temp: 02 Sat: 98 ECG Mon: 4. Pain Intensity: 5 5. Fall Risk: Dizziness: N Needs help standing or walking: N Fallen in the last 3 months: Y Fall risk comments: 6. Patient on Blood Thinner: None 7. History of Hypertension: Y 8. Opioid Therapy greater than 6 weeks: Y Opiate Contract Signed: 09/30/17 9. Risk Assessment Tool Provided: 3-low risk 10. Functional Assessment Tool: 11. Recreational Drug Use: Never Drug Type: Tobacco Use: Current Every Day Smoker Tobacco Type: Cigarettes Amount or Packs/day: 3 CIGS How Many Years: Alcohol Use: No Frequency: Quant:
--- NOTE | 2019-03-21 08:09 | HPC ---
[facility] [address] [place] [address] PAIN MANAGEMENT CONSULTATION Name: SHANDA ANTOINE Room #: REG [facility] Elis#: [id number] Admission: 03/16/19 Attend Phys: Karlie Lea Discharge: Date of : 47 Report #: [id number] THIS REPORT FOR: //name// CC: Karlie Lea Physician staff IVONNE CUETO DATE OF SERVICE: 03/16/2019 CHIEF COMPLAINT: Peripheral neuropathy. HISTORY OF PRESENT ILLNESS: This is a pleasant 73-year-old gentleman who returns to the pain clinic today for refill of his medications that he uses to help treat his peripheral neuropathy in his bilateral feet. He also has continued to have ongoing right elbow pain from a recent fracture 8 weeks ago. He is still wearing a sling, though he is sometimes not compliant and keeping it on all the time and that does increase his pain in his elbow. Today, he is reporting a pain of 5/10. The patient also has numerous bruises on his legs. He tells me he tripped over a cart at work and then a board fell against his leg for his other bruise. The patient is normal. Pain is worse with walking, but the medication and sitting are very beneficial. The patient does tell me that he finally found out what was causing all of his bleeding problems. 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 He also saw a doctor at . Since that time, his hemoglobin has continued to rise and now is currently 11.1. He has not taken any ibuprofen or Tylenol products for at least a month and has not required any blood transfusions since 02/02/2019. He tells me he will no longer take those medicines since he found out what it was doing to all of his different systems and his body. ALLERGIES: No known drug allergies. CURRENT LIST OF MEDICATIONS: Gabapentin 600 mg b.i.d., methadone 10 mg 1.5 in the morning and 1 at night, Cozaar 25 mg daily, lisinopril 2.5 mg daily, vitamin D, Hytrin 2 mg daily, clonidine 0.1 mg p.r.n., Norvasc 5 mg daily, desipramine 10 mg at bedtime, Ativan p.r.n., Symbicort, ProAir, and Prilosec. PQRS: 1. 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 Denies any rheumatoid arthritis. 2. Height is 5 feet 10 inches, weight is 214, BMI is 30. 3. Vital signs: Blood pressure 145/57, pulse is 66, respirations 16, oxygen [facility] [address] [place] [address] PAIN MANAGEMENT CONSULTATION Name: SHANDA ANTOINE Room #: REG [facility].#: [id number] Admission: 03/16/19 Attend Phys: Karlie Lea Discharge: Date of : 47 Report #: [id number] sat is 98. 4. Pain score is 5/10. 5. Denies dizziness, does not need help walking or standing, has fallen in the last 3 months. 6. The patient is not on any blood thinners. He does have a history of hypertension. 7. Opioid therapy is greater than 6 weeks; therefore, an opioid signed contract is on the chart. 8. Risk assessment tool is low. Functional assessment is 27/70. 9. Recreational drug use, he denies. Current smoker of 3 cigarettes a day and he does not drink alcohol. According to the prescription monitoring system, the patient is filling appropriately for his medications. He is not needing a methadone prescription this month; he recently filled on the . We will give him 1 prescription that is released in 4 weeks. We did do a drug screen on him in his last visit randomly, and it did show that he had taken oxycodone. When questioned him about that today, he tells me that he did take one of his 's medication when he fractured his elbow. We did discuss that he cannot take any other person's prescriptions or any medications but his own. This is against his contract and it is against hers as well. Dr. Lainez emphasized if we find out this happens again that we will wean him off his opioid medications. The patient verbalizes understanding. PHYSICAL EXAMINATION: GENERAL: This is a very pleasant and alert 73-year-old gentleman who appears his stated age. He is alert and orientated, placing his current pain score today at 5/10. HEENT: Normocephalic, atraumatic. Extraocular eye muscles are intact. Mucous membranes are moist. NECK: Without JVD or adenopathy. MUSCULOSKELETAL: Complains of burning and tingling in his bilateral feet. He has decreased proprioception in his feet due to his marked neuropathy and has caused multiple falls. His lower extremity strength judged to be 5/5 in all major muscle groups. His right arm is in a sling today. He has various stages of ecchymosis on his right thigh as well as his left knee from recent falls. NEUROLOGIC: The patient walks with a normal gait. IMPRESSION: 1. Chronic intractable pain with peripheral neuropathy secondary to diabetes. 2. Management of high-risk medications under terms of written opioid agreement. 3. Fractured elbow and is in a sling. We reviewed the fact that opiate medications are being used to provide analgesia adequate to support activities of daily living, not attempting to achieve a specific pain score on the 0-10 Visual Analog Scale. The current opiate [facility] [address] [place] [address] PAIN MANAGEMENT CONSULTATION Name: ELINASHANDA GALLAGHER Room #: REG [facility].#: [id number] Admission: 03/16/19 Attend Phys: Karlie Lea Discharge: Date of : 47 Report #: [id number] medications are providing sufficient analgesia to allow the patient to participate in activities of daily living. The patient is not exhibiting any aberrant behavior suggestive of drug diversion. The patient is not having any adverse reactions to medications. The patient is not suffering from daytime somnolence or mental acuity changes. The patient is managing opiate-induced constipation with appropriate vfow-zcq-kulaxgv agents and dietary considerations. The patient was counseled on concern for caution with operating a motor vehicle while using opiate medications. A physical exam was performed and the patient's functional status was evaluated. All patients with back pain were advised against the bed rest greater than 4 days and were advised to return to normal activities. Pain score assessment was noted and the treatment plan was reviewed with the patient. All current medications, both prescribed and OTC were reviewed and reconciled on the electronic medical record. Tobacco screening was accomplished and smoking cessation was advised when indicated. BMI was noted and diet/exercise modification was recommended for all patients following outside normal parameters. I reviewed with the patient today their responsibilities to safeguard prescription medications, reviewed their responsibility to utilize medications only as prescribed by the physician. They are to seek and receive pain medications only from 1 physician group ( [facility]). They are to use 1 pharmacy and keep the clinic informed if they change pharmacies. Their responsibilities include making followup visits in a timely fashion and to avoid abrupt discontinuation of medication usage. Their responsibilities further include bringing their medications (bottles from the pharmacy with residual pills) to the visit for possible confirmation of pill counts and the patient understands it is their responsibility to submit to random drug screens to ensure both that the medications prescribed are present, and that no other controlled substances are present. All prescriptions provided today were generated electronically. PLAN: 1. We discussed treatment options with the patient today. The patient finds his methadone very beneficial. He is not needing 2 months of medications since he just recently filled his last prescription. Scripts given for #75 for 4-week release. 2. The patient finds his gabapentin very beneficial. Scripts given for 600 mg twice a day, #60, with 1 additional refill. This does help reduce some of the burning in his bilateral feet. 3. We also went over his contract again and the use of narcotics, only taking his own, not taking any other person's medications. If he has a random drug screen that has positive for medications that he does not prescribe, Dr. Lainez told him he would decrease him off his methadone. The patient verbalizes understanding. [address] [address] PAIN MANAGEMENT CONSULTATION Name: SHANDA ANTOINE Room #: REG [facility] Gillis#: [id number] Admission: 03/16/19 Attend Phys: Karlie Lea Discharge: Date of : 49 Report #: [id number] 4. The patient will be seen in 2 months for medication refill. The patient is seen and collaborated with Dr. Addy parish. <ELECTRONICALLY SIGNED> By: Karlie Lea 03/21/19 0809 [id number] [id number] Karlie Lea /tisha
== END ==
LOC: PAIN 06:51
DX: E11.42 Type 2 diabetes mellitus with diabetic polyneuropathy (principal); S42.409A Unspecified fracture of lower end of unspecified humerus, initial encounter for closed fracture; G89.4 Chronic pain syndrome; Z79.891 Long term (current) use of opiate analgesic; Z79.899 Other long term (current) drug therapy; X58.XXXA Exposure to other specified factors, initial encounter; Y93.89 Activity, other specified; Y92.89 Other specified places as the place of occurrence of the external cause; Y99.8 Other external cause status

== ENCOUNTER → 2019-05-11 | Outpatient (CLI) | payer OTHER ==
[~2019-05-11] VITALS: Ht 177.8 cm; Wt 100.6 kg
[~2019-05-11] MED LIST changes: +IPRAT-ALBUT 0.5-3 ML INH; +VITAMIN D31000 UNIT PO; +ZOLPIDEM TARTRA10 MG PO
--- NOTE | ~2019-05-11 | HPC ---
[facility] [address] [place] [address] PAIN MANAGEMENT CONSULTATION Name: SHANDA ANTOINE Room #: REG [facility] Carmen.#: [id number] Admission: 05/11/19 Attend Phys: Addy Lainez MD Discharge: Date of : 49 Report #: [id number] THIS REPORT FOR: //name// CC: Physician staff Addy CUETO DATE OF SERVICE: 05/11/2019 Followup visit for severe neuropathy. The patient returns to pain clinic today in followup. I provided him with methadone for his neuropathy, which has been helpful. He has reduced his dose over the last year from 3 tablets a day to 2-1/2 and plans to make another drop to 2 tablets a day if he can, trying to find the lowest effective dose. He does not really like to take medications, but definitely finds that this medication provides relief of intractable pain. He uses it in addition to gabapentin. He has been getting multiple shots at some neuropathy clinic in [place]. Their vitamins are some other substance. He has had 24 visits. He goes twice a week. At first, he felt it was helpful; I am not sure so, if it is so. He needs to stay off of nonsteroidal anti-inflammatory drugs. He ____ us despite our questioning, he was taking nmcj-cyd-ohmkctn medications excessively ibuprofen 3200 mg a day, resulted in a significant GI bleed and blood loss. He has been transfused and is better. He does take 2 co-analgesics and lorazepam and Ambien to help with sleep and anxiety. We had a lengthy discussion today about the risks of combining the sedative medications along with his other medications. He has obviously been able to do it safely for a number of years. I have recommended that he have a sleep study. We also discussed other ways of managing insomnia in the middle of the night. Often times, this problem is waking up and ruminating at 3 in the morning when he goes to the bathroom. He cannot then go back to sleep. I have suggested a technique of mindfulness meditation and demonstrated it for him in the office. PQRS REVIEW: 1. Arthritis with temporomandibular joint discomfort as his primary complaint. 2. His BMI is 30.7. 3. Vital signs: Blood pressure 145/57, heart rate 66. 4. Pain intensity 5. 5. He is not a fall risk. 6. No blood thinners. 7. History of hypertension. Medications reviewed and reconciled. 8. He is on an opioid agreement, most recently signed in 2018. [address] [address] PAIN MANAGEMENT CONSULTATION Name: SHANDA ANTOINE Room #: REG [facility]#: [id number] Admission: 05/11/19 Attend Phys: Addy Lainez MD Discharge: Date of : 47 Report #: [id number] 9. He has completed an opioid risk tool and is considered low-risk at a score of 3. 10. Functional assessment score is 27 suggesting good management of his day-to-day activities despite his pain. 11. He continues to smoke 3 cigarettes a day. He was counseled. He denies use of tobacco or marijuana. IMPRESSION: Chronic neuropathy. PLAN: I have renewed his methadone at 75 tablets per month. Gabapentin 600 mg b.i.d. Two months of medications were provided. Plan to see him back in the pain clinic in June or in early July. By: [id number] Addy Lainez MD /nt
[2019-05-11 13:20] VITALS: BP 151/71
--- NOTE | 2019-05-11 13:37 | NUR ---
Pain Clinic Assessment: 1. 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 Height: 5 ft. 10 in. 177.8 cm. Weight: 221.8 lb. oz. 100.608 kg. Patient's BMI: 31.8 3. Vital Signs: BP: 151/71 Pulse: 65 Resp: 16 Temp: 02 Sat: 97 ECG Mon: 4. Pain Intensity: 8 5. Fall Risk: Dizziness: N Needs help standing or walking: N Fallen in the last 3 months: N Fall risk comments: 6. Patient on Blood Thinner: None 7. History of Hypertension: Y 8. Opioid Therapy greater than 6 weeks: Y Opiate Contract Signed: 09/30/17 9. Risk Assessment Tool Provided: 3-low risk 10. Functional Assessment Tool: 11. Recreational Drug Use: Never Drug Type: Tobacco Use: Current Every Day Smoker Tobacco Type: Cigarettes Amount or Packs/day: 3 cigs How Many Years: 58 Alcohol Use: No Frequency: Quant:
== END ==
LOC: PAIN 06:55
DX: G62.89 Other specified polyneuropathies (principal); I10 Essential (primary) hypertension; Z79.899 Other long term (current) drug therapy; Z79.891 Long term (current) use of opiate analgesic

== ENCOUNTER → 2019-07-06 | Outpatient (CLI) | payer OTHER ==
[~2019-07-06] VITALS: Ht 177.8 cm; Wt 103.0 kg
[~2019-07-06] MED LIST changes: +TRAZODONE HCL50 MG PO
[2019-07-06 11:17] VITALS: BP 164/68
--- NOTE | 2019-07-06 11:24 | NUR ---
Pain Clinic Assessment: 1. 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 Height: 5 ft. 10 in. 177.8 cm. Weight: 227.0 lb. oz. 102.967 kg. Patient's BMI: 32.6 3. Vital Signs: BP: 164/68 Pulse: 68 Resp: 18 Temp: 02 Sat: 97 ECG Mon: 4. Pain Intensity: 8 5. Fall Risk: Dizziness: N Needs help standing or walking: N Fallen in the last 3 months: N Fall risk comments: 6. Patient on Blood Thinner: None 7. History of Hypertension: Y 8. Opioid Therapy greater than 6 weeks: Y Opiate Contract Signed: 09/30/17 9. Risk Assessment Tool Provided: low risk-0 10. Functional Assessment Tool: 49/ 11. Recreational Drug Use: Never Drug Type: Tobacco Use: Current Every Day Smoker Tobacco Type: Cigarettes Amount or Packs/day: 1/2 PACK How Many Years: 58 Alcohol Use: No Frequency: Quant:
--- NOTE | 2019-07-07 08:06 | HPC ---
[facility] [place] [address] PAIN MANAGEMENT CONSULTATION Name: SHANDA ANTOINE Room #: REG [facility].#: [id number] Admission: 07/06/19 Attend Phys: Karlie Lea Discharge: Date of : 49 Report #: [id number] THIS REPORT FOR: //name// CC: Karlie Lea Physician staff Addy Boateng DATE OF SERVICE: 07/06/2019 CHIEF COMPLAINT: Severe neuropathy. HISTORY OF PRESENT ILLNESS: This is a 73-year-old gentleman who returns to the pain clinic today for refill of his medications. He reports that his pain is an 8/10 today, it is in his bilateral feet, mostly on the anterior portion. He reports that he continues to have his treatments for neuropathy in a clinic in [place] once a week. He was unable to have this last week and he has noticed an increase in his pain since that time. He reports his was sick, so he was unable to go. He is scheduled to have it again next week. He finds these treatments as well as his methadone and gabapentin beneficial in helping reduce his pain. He does report that walking and lifting do exacerbate his pain. He denies problem with constipation. Today, he would like refills of his medications. ALLERGIES: No known drug allergies. CURRENT LIST OF MEDICATIONS: Methadone 10 mg tablets b.i.d., trazodone 50 mg at bedtime, gabapentin 600 mg b.i.d., lisinopril, vitamin D, Hytrin, clonidine, amlodipine, Ativan, Symbicort, ProAir and Prilosec. PQRS: 1. 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 Denies any rheumatoid arthritis. 2. Height is 5 feet 10 inches, weight is 227, BMI is 32. 3. Vital Signs: 164/68, pulse is 68, respirations 18, oxygen sat is 97. 4. Pain score is 8/10. 5. Denies dizziness. Does not need help walking or standing. Has not fallen in the last 3 months. 6. The patient is not on any blood thinners, but does take medicine for hypertension. Opioid therapy is greater than 6 weeks; therefore, an opiate signed contract is on the chart. Risk assessment is low. Functional assessment is 49/70. 7. Recreational drug use, he denies. He currently smokes about a half a pack of cigarettes a day [place] [address] PAIN MANAGEMENT CONSULTATION Name: SHANDA ANTOINE [id number] Admission: 07/06/19 Attend Phys: Karlie Lea Discharge: Date of : 47 Report #: [id number] According to the prescription monitoring system, the patient is not due to fill his narcotics until next week, though he has been filling in a timely fashion. There is a recent drug screen on the chart as well. PHYSICAL EXAMINATION: GENERAL: This is alert and orientated 73-year-old gentleman who appears his stated age, placing his current pain score at 8/10 today. HEENT: Normocephalic, atraumatic. Extraocular eye muscles are intact. Mucous membranes are moist. MUSCULOSKELETAL: Complains of burning in his bilateral feet. He walks with a slightly antalgic gait. Lower extremity strength judged to be 5/5 in all major muscle groups. IMPRESSION: 1. Chronic intractable pain with peripheral neuropathy secondary to diabetes. 2. Management of high risk medications under terms of written opioid agreement. PLAN: 1. We discussed treatment options with the patient today. The patient finds his methadone very beneficial, giving him sufficient analgesic to allow him to participate in activities that he likes to do around the house and continue working. He does not have any problems with constipation or daytime sleepiness from these medicines. We will e-prescribe his methadone 10 mg, #75 today to the [facility] in [place]. They will be released in 1-week and then again in August after the since he is a week early today. 2. We will electronically send his gabapentin 600 mg, #60 with 5 additional refills as well. 3. We did discuss smoking cessation. The patient is smoking about half a pack a day and hiding this from his spouse. I encouraged him to alter his patterns or his habits for when he does smoke, trying to decrease this slowly over time. Hopefully, he can continue to decrease and break this habit before next visit. The patient verbalizes understanding. He will try, but he knows it is hard, though he has tried acupuncture, hypnosis, Nicorette gum. He continues to try to stop his smoking. 4. The patient is seen in collaboration today with Dr. Addy Lainez. <ELECTRONICALLY SIGNED> By: Karlie Lea 07/07/19 0806 [id number] Karlie Lea /tisha
== END ==
LOC: PAIN 10:24
DX: E11.42 Type 2 diabetes mellitus with diabetic polyneuropathy (principal); G89.4 Chronic pain syndrome; Z79.891 Long term (current) use of opiate analgesic

== ENCOUNTER → 2019-09-07 | Outpatient (CLI) | payer OTHER ==
[~2019-09-07] VITALS: Ht 177.8 cm; Wt 105.5 kg
[2019-09-07 13:10] VITALS: BP 149/72
--- NOTE | 2019-09-07 13:22 | NUR ---
Pain Clinic Assessment: 1. 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 Height: 5 ft. 10 in. 177.8 cm. Weight: 232.6 lb. oz. 105.507 kg. Patient's BMI: 33.4 3. Vital Signs: BP: 149/72 Pulse: 60 Resp: 16 Temp: 02 Sat: 98 ECG Mon: 4. Pain Intensity: 10 5. Fall Risk: Dizziness: N Needs help standing or walking: N Fallen in the last 3 months: N Fall risk comments: 6. Patient on Blood Thinner: None 7. History of Hypertension: Y 8. Opioid Therapy greater than 6 weeks: Y Opiate Contract Signed: 09/30/17 9. Risk Assessment Tool Provided: low risk-0 10. Functional Assessment Tool: 11. Recreational Drug Use: Never Drug Type: Tobacco Use: Current Every Day Smoker Tobacco Type: Cigarettes Amount or Packs/day: 6 How Many Years: 59 Alcohol Use: No Frequency: Quant:
--- NOTE | 2019-09-08 11:08 | HPC ---
[facility] [place] [address] PAIN MANAGEMENT CONSULTATION Name: SHANDA ANTOINE Room #: REG [facility].#: [id number] Admission: 09/07/19 Attend Phys: Karlie Lea Discharge: Date of : 47 Report #: [id number] THIS REPORT FOR: cc: IVONNE CUETO DO Physician not on staff Karlie Lea ~ THIS REPORT FOR: //name// CC: Karlie Lea Physician staff IVONNE CUETO DATE OF SERVICE: 09/07/2019 CHIEF COMPLAINT: Severe neuropathy. HISTORY OF PRESENT ILLNESS: This is a 74-year-old gentleman who returns to the Pain Clinic today for a refill of his medications. He is reporting that his pain in his feet have been getting worse, rating it at 10/10 today. He said the burning at nighttime is quite bothersome after he has worked for the day. He feels that walking also increases his pain. He feels that medications are usually beneficial as well as sitting. He is requesting to return to his previous methadone dose of 30 mg total to see if this will decrease some of his pain. He reports that he is no longer doing treatments that he had in the past for his neuropathic pain, called [facility] neoGEN treatments. He had first found those very beneficial, but now has decided that they were not as effective as he thought. ALLERGIES: No known drug allergies. CURRENT LIST OF MEDICATIONS: Methadone 15 mg in the morning and 10 mg at night, gabapentin 600 mg b.i.d., trazodone, lisinopril, vitamin D, Hytrin, clonidine, amlodipine, lorazepam, Symbicort, albuterol, and omeprazole. PATIENT'S PQRS: 1. 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 2. Height is 5 feet 10 inches, weight is 232, BMI is 33. 3. Vital signs 149/72, pulse is 60, respirations 16, oxygen sat is 98. 4. Pain score is 10/10. 5. Denies dizziness, does not need help walking or standing, has not fallen in the last 3 months. 6. The patient is not on any blood thinners, but does take medicine for hypertension. His opioid therapy is greater than 6 weeks; therefore, an opioid signed contract is on the chart. Risk assessment tool is low. Functional assessment is 49/70. [address] [address] PAIN MANAGEMENT CONSULTATION Name: ELINASHANDA GALLAGHER Room #: REG CLI [facility]#: [id number] Admission: 09/07/19 Attend Phys: Karlie Lea Discharge: Date of : 47 Report #: [id number] 7. Recreational drug use, he denies. He is a current smoker about 6 cigarettes a day, does not drink any alcohol. According to the prescription monitoring system, the patient is filling appropriately, due to fill his medications next week. According to the CDC guidelines, his morphine mEq is 75. PHYSICAL EXAMINATION: GENERAL: This is alert and orientated 74-year-old gentleman who appears his stated age, placing his current pain score at 10/10 today. HEENT: Normocephalic, atraumatic. Extraocular eye muscles are intact. Mucous membranes are moist. MUSCULOSKELETAL: He has bilateral burning in his feet, right greater than the left. He walks with an antalgic gait. Lower extremity strength judged to be 5/5 in all major muscle groups. IMPRESSION: 1. Chronic intractable pain with peripheral neuropathy. 2. Management of high risk medications under terms of written opioid agreement. We reviewed the fact that opiate medications are being used to provide analgesia adequate to support activities of daily living, not attempting to achieve a specific pain score on the 0-10 Visual Analog Scale. The current opiate medications are providing sufficient analgesia to allow the patient to participate in activities of daily living. The patient is not exhibiting any aberrant behavior suggestive of drug diversion. The patient is not having any adverse reactions to medications. The patient is not suffering from daytime somnolence or mental acuity changes. The patient is managing opiate-induced constipation with appropriate liao-kee-dqwzgmg agents and dietary considerations. The patient was counseled on concern for caution with operating a motor vehicle while using opiate medications. PLAN: 1. We discussed treatment options with the patient today. I explained to the patient that we were trying to keep the patient on lowest most effective dose of his methadone. He is currently at 75 morphine mEq at his current dose of 25 mg of methadone a day. We would like to continue him at this current level. The patient is agreeable with this. 2. We then talked about his gabapentin, he currently takes 600 in the morning and 600 at dinnertime. We discussed moving his evening dose to bedtime to see if that helps with his nighttime restless leg and burning that he experiences during the sleeping hours. If this is not beneficial, he may add 300 mg tablet after he returns home from work, titrating up to 600 mg after work for a total of 600 three times a day. The patient is to call us in 1 month and report how he was doing. 3. The patient denies any problems with constipation or daytime sleepiness. [address] [address] PAIN MANAGEMENT CONSULTATION Name: SHANDA ANTOINE [id number] Admission: 09/07/19 Attend Phys: aKrlie Lea Discharge: Date of : 47 Report #: [id number] 4. The patient does continue to smoke about 6 cigarettes a day. He has not been able to decrease this smoking, but will try again in the next couple of months. 5. The patient is seen in collaboration with Dr. Addy Lainez. <ELECTRONICALLY SIGNED> By: Karlie Lea 09/08/19 1108 [id number] Karlie Lea /nt
== END ==
LOC: PAIN 07:00
DX: G62.9 Polyneuropathy, unspecified (principal); G89.29 Other chronic pain; Z79.899 Other long term (current) drug therapy

== ENCOUNTER → 2019-11-06 | Outpatient (CLI) | payer OTHER ==
[~2019-11-06] VITALS: Ht 177.8 cm; Wt 106.4 kg
[2019-11-06 13:07] VITALS: BP 150/58
--- NOTE | 2019-11-06 13:13 | NUR ---
Pain Clinic Assessment: 1. 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 Height: 5 ft. 10 in. 177.8 cm. Weight: 234.6 lb. oz. 106.414 kg. Patient's BMI: 33.7 3. Vital Signs: BP: 150/58 Pulse: 63 Resp: 18 Temp: 02 Sat: 96 ECG Mon: 4. Pain Intensity: 8 5. Fall Risk: Dizziness: N Needs help standing or walking: N Fallen in the last 3 months: N Fall risk comments: 6. Patient on Blood Thinner: None 7. History of Hypertension: Y 8. Opioid Therapy greater than 6 weeks: Y Opiate Contract Signed: 09/30/17 9. Risk Assessment Tool Provided: low risk-0 10. Functional Assessment Tool: 49/70 11. Recreational Drug Use: Never Drug Type: Tobacco Use: Current Every Day Smoker Tobacco Type: Amount or Packs/day: How Many Years: Alcohol Use: No Frequency: Quant:
--- NOTE | 2019-11-07 15:24 | HPC ---
[facility] [address] [place] [address] PAIN MANAGEMENT CONSULTATION Name: SHANDA ANTOINE Room #: REG [facility].#: [id number] Admission: 11/06/19 Attend Phys: Karlie Lea Discharge: Date of : 47 Report #: [id number] THIS REPORT FOR: cc: IVONNE CUETO DO Physician not on staff Karlie Lea ~ DATE OF SERVICE: 11/06/2019 CHIEF COMPLAINT: Bilateral foot pain, severe neuropathy. HISTORY OF PRESENT ILLNESS: This is a 74-year-old gentleman who returns to the Pain Clinic today for a refill of his medications. Today, he is reporting his pain score an 8/10 with pain in his bilateral feet. He states right now his calves have slightly decreased in the amount of pain he is experiencing, it is a burning feeling, especially when he is walking or lifting. He feels that the methadone and gabapentin are very beneficial in controlling his pain as well as sitting down. He does continue to work part-time during this COVID outbreak. 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 He would like to stay at home where he is safe, but he does need to continue to work, though the amount of patients coming in the [place] is very minimal these days per his report. He denies any problems with constipation or daytime sleepiness. He states that he has been feeling fine with no symptoms of COVID virus. ALLERGIES: No known drug allergies. CURRENT LIST OF MEDICATIONS: Methadone 15 mg in the morning and 10 mg at night, Nucynta, gabapentin, lisinopril, vitamin D, Hytrin, clonidine, amlodipine, Ativan, Symbicort, omeprazole. PQRS: 1. 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 Denies any rheumatoid arthritis. 2. Height is 5 feet 10 inches, weight is 234, BMI is 33. 3. Vital signs 150/58, pulse is 63, respirations 18, oxygen sat is 96. 4. Pain score is 8/10. 5. Denies dizziness, does not need help walking or standing, has not fallen in the last 3 months. 6. The patient is not on any blood thinners, but does take medicine for hypertension. 7. Opiate therapy is greater than 6 weeks; therefore, an opioid signed contract is on the chart. Risk assessment tool is low. Functional assessment is 49/70. 8. Recreational drug use, he denies. He is a current smoker [place] [address] PAIN MANAGEMENT CONSULTATION Name: SHANDA ANTOINE [id number] Admission: 11/06/19 Attend Phys: Karlie Lea Discharge: Date of : 47 Report #: [id number] According to the prescription monitoring system, the patient is filling appropriately in a timely fashion. His morphine mEq is 75 MME per day according to the CDC guidelines. There is a recent drug screen on the chart. We will recheck one at his next visit. PHYSICAL EXAMINATION: GENERAL: This is alert and orientated 74-year-old, who appears his stated age, placing his current pain score is 8/10. HEENT: Normocephalic, atraumatic. Extraocular eye muscles are intact. Mucous membranes are moist. MUSCULOSKELETAL: His gait is antalgic. Has burning pain in his bilateral feet, greater on his right than his left. His lower extremity strength judged to be 5/5 in all major muscle groups. He has decreased pain in his calves today. IMPRESSION: 1. Chronic intractable pain with peripheral neuropathy. 2. Management of high risk medications under terms of written opioid agreement. We reviewed the fact that opiate medications are being used to provide analgesia adequate to support activities of daily living, not attempting to achieve a specific pain score on the 0-10 Visual Analog Scale. The current opiate medications are providing sufficient analgesia to allow the patient to participate in activities of daily living. The patient is not exhibiting any aberrant behavior suggestive of drug diversion. The patient is not having any adverse reactions to medications. The patient is not suffering from daytime somnolence or mental acuity changes. The patient is managing opiate-induced constipation with appropriate wcyp-rbr-vzfdwau agents and dietary considerations. The patient was counseled on concern for caution with operating a motor vehicle while using opiate medications. A physical exam was performed and the patient's functional status was evaluated. All patients with back pain were advised against the bed rest greater than 4 days and were advised to return to normal activities. Pain score assessment was noted and the treatment plan was reviewed with the patient. All current medications, both prescribed and OTC were reviewed and reconciled on the electronic medical record. Tobacco screening was accomplished and smoking cessation was advised when indicated. BMI was noted and diet/exercise modification was recommended for all patients following outside normal parameters. I reviewed with the patient today their responsibilities to safeguard prescription medications, reviewed their responsibility to utilize medications only as prescribed by the physician. They are to seek and receive pain medications only from 1 physician group ([facility]). They are to use 1 pharmacy and keep the clinic informed if they change pharmacies. Their responsibilities include making followup visits in a timely fashion and to avoid [address] [address] PAIN MANAGEMENT CONSULTATION Name: SHANDA ANTOINE Room #: REG [facility]#: [id number] Admission: 11/06/19 Attend Phys: Karlie Lea Discharge: Date of : 47 Report #: [id number] abrupt discontinuation of medication usage. Their responsibilities further include bringing their medications (bottles from the pharmacy with residual pills) to the visit for possible confirmation of pill counts and the patient understands it is their responsibility to submit to random drug screens to ensure both that the medications prescribed are present, and that no other controlled substances are present. All prescriptions provided today were generated electronically. PLAN: 1. We discussed treatment options with the patient today. The patient's meds are very beneficial in controlling some of his neuropathic pain. He is not in need of his gabapentin to be refilled today, so we will have Dr. Addy Lainez electronically send his methadone 10 mg tablets, 15 in the morning and 10 at night mg, quantity is 75 for today and 4-week release. 2. I did discuss with the patient during this time of COVID virus outbreak, we are uncertain if that will be a problem with supply chain distribution and encouraged him to take slightly less medicine on some days; therefore having a small supply at home in case there is a disruption in his medications and therefore he would not go through withdrawal. The patient verbalizes understanding. He is unsure if he will be able to decrease his methadone, but he will try especially his gabapentin. The patient is to follow up in 2 months for another visit and hopefully at that time, all the COVID virus would have subsided. 3. The patient is seen in collaboration with Dr. Addy Lainez who did see the patient as well today. <ELECTRONICALLY SIGNED> By: Karlie Lea 11/07/19 1524 [id number] [id number] Karlie Lea /nt
== END ==
LOC: PAIN 06:42
DX: G62.9 Polyneuropathy, unspecified (principal); M79.672 Pain in left foot; M79.671 Pain in right foot; F11.20 Opioid dependence, uncomplicated; Z79.899 Other long term (current) drug therapy

== ENCOUNTER → 2020-01-04 | Outpatient (CLI) | payer OTHER ==
[~2020-01-04] VITALS: Ht 177.8 cm; Wt 105.8 kg
[2020-01-04 12:52] VITALS: BP 130/60
--- NOTE | 2020-01-04 13:03 | NUR ---
Pain Clinic Assessment: 1. 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 Height: 5 ft. 10 in. 177.8 cm. Weight: 233.2 lb. oz. 105.779 kg. Patient's BMI: 33.5 3. Vital Signs: BP: 130/60 Pulse: 58 Resp: 16 Temp: 02 Sat: 98 ECG Mon: 4. Pain Intensity: 8 5. Fall Risk: Dizziness: N Needs help standing or walking: N Fallen in the last 3 months: N Fall risk comments: 6. Patient on Blood Thinner: None 7. History of Hypertension: Y 8. Opioid Therapy greater than 6 weeks: Y Opiate Contract Signed: 09/30/17 9. Risk Assessment Tool Provided: low risk-0 10. Functional Assessment Tool: / 11. Recreational Drug Use: Never Drug Type: Tobacco Use: Current Every Day Smoker Tobacco Type: Cigarettes Amount or Packs/day: How Many Years: Alcohol Use: No Frequency: Quant:
--- NOTE | 2020-01-04 16:40 | HPC ---
[facility] [place] [address] PAIN MANAGEMENT CONSULTATION Name: SHANDA ANTOINE Room #: REG [facility].#: [id number] Admission: 01/04/20 Attend Phys: Karlie Lea Discharge: Date of : 49 Report #: [id number] THIS REPORT FOR: cc: IVONNE CUETO DO Physician not on staff Karlie Lea ~ CC: Addy Lainez MD DATE OF SERVICE: 01/04/2020 CHIEF COMPLAINT: Bilateral foot pain, severe neuropathy. HISTORY OF PRESENT ILLNESS: The patient is a 74-year-old that is well known to the pain clinic and returns today for refill of his medication of methadone that he uses to help treat his ongoing neuropathic pain in his bilateral feet. He states today that his pain is increased at 8/10. 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 He feels that this has increased his pain. It is a constant, burning tingly. He feels when he is able to sit down at home and rest or elevate his feet that his pain does subside. He currently takes his methadone twice a day as well as his gabapentin. Today, he is requesting refill. He experiences no constipation issues or daytime somnolence as a result of his medications. ALLERGIES: No known drug allergies. CURRENT LIST OF MEDICATIONS: Methadone 10 mg 1.5 in the morning, one at night, Lunesta, gabapentin 600 mg b.i.d., lisinopril, vitamin D, Hytrin, clonidine, amlodipine, lorazepam, Symbicort, ProAir, and Prilosec. PQRS: 1. He has osteoarthritis in his temporomandibular joint. He denies any rheumatoid arthritis. 2. Height is 5 feet 10 inches, weight is 233, BMI is 33. 3. Vital signs, blood pressure 130/60, pulse is 58, respirations 16, oxygen sat is 98. 4. Pain score is 8/10. 5. Denies dizziness, does not need help walking or standing, has not fallen in the last 3 months. He is not on any blood thinners, but does take medicine for hypertension. 6. Opioid therapy is greater than 6 weeks; therefore, an opioid signed contract is on the chart. Risk assessment tool is low. Functional assessment is 49/70. 7. Recreational drug use, he denies. He is a current smoker and does not drink alcohol. According to the prescription monitoring system, the patient is filling [address] [address] PAIN MANAGEMENT CONSULTATION Name: SHANDA ANTOINE Room #: REG [facility]#: [id number] Admission: 01/04/20 Attend Phys: Karlie Lea Discharge: Date of : 49 Report #: [id number] appropriately with his medications. According to the CDC guidelines, his morphine mEq is 75 MME per day. We will check a random drug screen on this patient today since it has been greater than one year. The patient reports his last dose was this morning. PHYSICAL EXAMINATION: GENERAL: This is a well-developed, well-nourished 74-year-old gentleman who appears his stated age, placing his current pain score at 8/10. HEENT: Normocephalic, atraumatic. Extraocular eye muscles are intact. He is wearing a mask. MUSCULOSKELETAL: He has an antalgic gait. His lower extremity strength judged to be 5/5 in all major muscle groups. He has burning sensation in his bilateral feet, worse on his right and left, occasionally radiates to his calves. IMPRESSION: 1. Chronic intractable pain with peripheral neuropathy. 2. Management of high risk medications under terms of written opioid agreement. We reviewed the fact that opiate medications are being used to provide analgesia adequate to support activities of daily living, not attempting to achieve a specific pain score on the 0-10 Visual Analog Scale. The current opiate medications are providing sufficient analgesia to allow the patient to participate in activities of daily living. The patient is not exhibiting any aberrant behavior suggestive of drug diversion. The patient is not having any adverse reactions to medications. The patient is not suffering from daytime somnolence or mental acuity changes. The patient is managing opiate-induced constipation with appropriate vpba-[id number]-[id number] agents and dietary considerations. The patient was counseled on concern for caution with operating a motor vehicle while using opiate medications. PLAN: 1. We discussed treatment options with the patient today. The patient finds his medicine very beneficial, though he has been having increased pain, especially after working on his feet for at least 5-6 hours at a time. We discussed changing how he takes his methadone medications slightly continuing his one and half in the morning, take a half a tablet in the afternoon after work and then the other half a tablet at bedtime. The patient verbalizes understanding. He will try changing times of his medication dosages. 2. We will have Dr. Addy Lainez send his methadone #75 tablets electronically for today and 4-week release to his pharmacy. 3. I will send his gabapentin 600 mg b.i.d. for #60 with 5 additional refills to his pharmacy. [address] [address] PAIN MANAGEMENT CONSULTATION Name: SHANDA ANTOINE Room #: REG [facility] [id number] Admission: 01/04/20 Attend Phys: Karlie Lea Discharge: Date of : 49 Report #: [id number] 4. We will collect a random drug screen on this patient today. The patient is seen in collaboration with Dr. Addy Lainez. <ELECTRONICALLY SIGNED> By: Karlie Lea 01/04/20 1640 [id number] Karlie Lea /tisha
== END ==
LOC: PAIN 06:59
DX: M26.69 Other specified disorders of temporomandibular joint (principal); Z79.899 Other long term (current) drug therapy; Z79.891 Long term (current) use of opiate analgesic

== ENCOUNTER → 2020-03-04 | Outpatient (CLI) | payer OTHER ==
[~2020-03-04] VITALS: Ht 177.8 cm; Wt 105.9 kg
--- NOTE | ~2020-03-04 | HPC ---
[facility] [address] PAIN MANAGEMENT CONSULTATION Name: SHANDA ANTOINE Room #: REG [facility] Carmen.#: [id number] Admission: 03/04/20 Attend Phys: Addy Lainez MD Discharge: Date of : 49 Report #: [id number] THIS REPORT FOR: cc: IVONNE CUETO DO Physician not on staff Addy Lainez MD ~ CC: Physician staff Addy CUETO DATE OF SERVICE: 03/04/2020 Followup visit for chronic neuropathic pain. The patient has severe bilateral peripheral neuropathy, which has responded to methadone and has been on gabapentin as a co-analgesic. Pain was then worse slightly over the last several months and we have talked about a number of other treatments, both physical and medicinal. He has used topical agents with little improvement. He occasionally used heat and ice. Current dose of methadone is 25 mg a day, taken half in the morning and half at night. He is allowed 75, 10 mg tablets per month. I have checked the prescription drug monitoring program information and there are no unexpected entries. He is very grateful for the medicine, which have been the most helpful of all for his neuropathic pain. We reviewed the role of methadone and treatment of neuropathic pain in combination with other co-analgesics. We decided today that we would try him on a short 10-day course of Lyrica 50 mg 3 times daily. We discussed Lyrica, gabapentin and the differences and similarities. If he is doing well, then I have asked him to call the clinic and we will call an additional prescription for him. If not, we will transition him back to gabapentin, which is 600 mg b.i.d. PQRS: Positive for osteoarthritis. He describes pain in his temporomandibular joint. BMI remains 33. Blood pressure is 140/65, heart rate 60, respirations 16, O2 sat 98. He describes his pain intensity is a 10/10. Fall risk: None. Blood thinners, none. History of hypertension, under treatment. I reviewed his medicines and he continues on clonidine and lorazepam. Clonidine course has some pain relieving benefits as well. The opioid agreement was reviewed. He has no red flag behaviors and no other prescribers on the prescription drug monitoring program information. He carefully safeguards his medicine. Denies use of recreational drugs, but continues to smoke tobacco 1/2 pack a day for the last 50 years and denies use of alcohol. PHYSICAL EXAMINATION: VITAL SIGNS: As noted. GENERAL: Well-developed gentleman, pleasant, alert and oriented with no signs [address] [address] PAIN MANAGEMENT CONSULTATION Name: SHANDA ANTOINE Room #: REG [facility]#: [id number] Admission: 03/04/20 Attend Phys: Addy Lainez MD Discharge: Date of : 49 Report #: [id number] of overmedication, depression or anxiety. He moves independently from sitting to standing position. His gait is antalgic. He has some allodynia bilaterally in lower extremities and feet and decreased sensation bilaterally, right continues to be worse on the left. IMPRESSION: 1. Chronic intractable pain with severe peripheral neuropathy. 2. Management of high risk medications under terms of written agreement. We reviewed the important aspects of his medications, discussed importance of safeguarding them. A new prescription for the Kristinaa was sent and I plan to see him back in the pain clinic sometime within the next 2 months. We will keep a close eye on his methadone because of his high morphine milligram equivalency at 25 mg at 75 MME. By: 1424 [id number] Addy Lainez MD /nt
[2020-03-04 13:43] VITALS: BP 140/65
--- NOTE | 2020-03-04 13:58 | NUR ---
Pain Clinic Assessment: 1. 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 Height: 5 ft. 10 in. 177.8 cm. Weight: 233.4 lb. oz. 105.870 kg. Patient's BMI: 33.5 3. Vital Signs: BP: 140/65 Pulse: 60 Resp: 16 Temp: 02 Sat: 98 ECG Mon: 4. Pain Intensity: 10 5. Fall Risk: Dizziness: N Needs help standing or walking: N Fallen in the last 3 months: N Fall risk comments: 6. Patient on Blood Thinner: None 7. History of Hypertension: Y 8. Opioid Therapy greater than 6 weeks: Y Opiate Contract Signed: 09/30/17 9. Risk Assessment Tool Provided: low risk-0 10. Functional Assessment Tool: 11. Recreational Drug Use: Never Drug Type: Tobacco Use: Current Every Day Smoker Tobacco Type: Cigarettes Amount or Packs/day: <1/2 How Many Years: 60 Alcohol Use: No Frequency: Quant:
== END ==
LOC: PAIN 06:51
PROVIDERS: ATTEND Anesthesiology Pain Medicine
DX: G00.9 Bacterial meningitis, unspecified (principal); M79.2 Neuralgia and neuritis, unspecified; G89.29 Other chronic pain; F11.20 Opioid dependence, uncomplicated; Z79.899 Other long term (current) drug therapy

== ENCOUNTER → 2020-05-09 | Outpatient (CLI) | payer OTHER ==
[~2020-05-09] VITALS: Ht 177.8 cm; Wt 106.9 kg
[2020-05-09 13:19] VITALS: BP 128/51
--- NOTE | 2020-05-09 13:35 | NUR ---
Pain Clinic Assessment: 1. 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 Height: 5 ft. 10 in. 177.8 cm. Weight: 235.6 lb. oz. 106.868 kg. Patient's BMI: 33.8 3. Vital Signs: BP: 128/51 Pulse: 65 Resp: 16 Temp: 02 Sat: 97 ECG Mon: 4. Pain Intensity: 6 5. Fall Risk: Dizziness: N Needs help standing or walking: N Fallen in the last 3 months: N Fall risk comments: 6. Patient on Blood Thinner: None 7. History of Hypertension: Y 8. Opioid Therapy greater than 6 weeks: Y Opiate Contract Signed: 09/30/17 9. Risk Assessment Tool Provided: low risk-0 10. Functional Assessment Tool: 11. Recreational Drug Use: Never Drug Type: Tobacco Use: Current Every Day Smoker Tobacco Type: Cigarettes Amount or Packs/day: 1/2 How Many Years: 60 Alcohol Use: No Frequency: Quant:
--- NOTE | 2020-05-10 07:53 | HPC ---
[facility] [address] [place] [address] PAIN MANAGEMENT CONSULTATION Name: SHANDA ANTOINE [id number] Admission: 05/09/20 Attend Phys: Kralie Lea Discharge: Date of : 49 Report #: [id number] CC: Karlie Lea Physician staff Addy CUETO DATE OF SERVICE: 05/09/2020 CHIEF COMPLAINT: Chronic neuropathic pain. HISTORY OF PRESENT ILLNESS: This is a very pleasant 74-year-old who is well known to the pain clinic. We treat him for his peripheral neuropathy that he experiences in his bilateral feet and lower extremities. He reports that his pain is most severe later in the day after he has worked at the [employer] several hours each day with significant numbness and tingly in his calf and feet, rating this pain score of 6/10 today. He states that he knows he is gaining some weight. He has been unable to walk like he was hopeful this summer due to increasing pain in his feet. He has been so active at work that when he comes home, he does need to rest for a while before he feels better each day. He believes by sitting in his recliner and taking his medication that is most beneficial for him. Today, he is requesting refills of his methadone. ALLERGIES: No known drug allergies. CURRENT LIST OF MEDICATIONS: Gabapentin 600 mg b.i.d., methadone 15 mg in the morning and 10 mg at night, Lunesta, Lisinopril, vitamin D, Hytrin, clonidine, amlodipine, lorazepam, Symbicort, omeprazole. PQRS: 1. 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 Denies any rheumatoid arthritis. 2. Height is 5 feet 10 inches, weight is 235, BMI is 33. 3. Vital signs; blood pressure 128/51, pulse is 65, respirations 16, oxygen sat is 97%. 4. Pain score is 6/10. 5. Fall risk. Denies dizziness, does not need help walking or standing. He has not fallen in the last 3 months. 6. The patient is not on any blood thinners, but does take medicine for hypertension. 7. His opioid therapy is greater than 6 weeks; therefore, an opioid signed contract is on the chart. Risk assessment is low. Functional assessment is 49/70. 8. Recreational drug use, he denies. He is a current smoker and does not drink alcohol. According to the prescription monitoring system, he is filling appropriate for his medications, filling them on a monthly basis with his morphine milliequivalent at 75 MME. There is a random drug screen on his chart that is appropriate as well. He does take occasional benzodiazepine as well as his opioids. These are closely monitored. PHYSICAL EXAMINATION: GENERAL: This is a well-developed, well-nourished, well-hydrated 74-year-old gentleman who appears his stated age, placing his current pain score at 6/10. HEENT: Normocephalic, atraumatic. Extraocular eye muscles are intact. He is wearing a mask. MUSCULOSKELETAL: He moves independently from the sitting to standing position. He has an antalgic gait with some allodynia bilaterally in his lower extremities with decreased sensation in his feet, his right elbow has a fluid sac that is movable, denies any discomfort. No bruising noted. IMPRESSION: 1. Chronic intractable pain with severe peripheral neuropathy. 2. Management of high risk medications under terms of written opioid agreement. We reviewed the fact that opiate medications are being used to provide analgesia adequate to support activities of daily living, not attempting to achieve a specific pain score on the 0-10 Visual Analog Scale. The current opiate medications are providing sufficient analgesia to allow the patient to participate in activities of daily living. The patient is not exhibiting any aberrant behavior suggestive of drug diversion. The patient is not having any adverse reactions to medications. The patient is not suffering from daytime somnolence or mental acuity changes. The patient is managing opiate-induced constipation with appropriate ctdd-gpl-zytsyiv agents and dietary considerations. The patient was counseled on concern for caution with operating a motor vehicle while using opiate medications. A physical exam was performed and the patient's functional status was evaluated. All patients with back pain were advised against the bed rest greater than 4 days and were advised to return to normal activities. Pain score assessment was noted and the treatment plan was reviewed with the patient. All current medications, both prescribed and OTC were reviewed and reconciled on the electronic medical record. Tobacco screening was accomplished and smoking cessation was advised when indicated. BMI was noted and diet/exercise modification was recommended for all patients following outside normal parameters. I reviewed with the patient today their responsibilities to safeguard prescription medications, reviewed their responsibility to utilize medications only as prescribed by the physician. They are to seek and receive pain medications only from 1 physician group ( [facility]). They are to use 1 pharmacy and keep the clinic informed if they change pharmacies. Their responsibilities include making followup visits in a timely fashion and to avoid abrupt discontinuation of medication usage. Their responsibilities further include bringing their medications (bottles from the pharmacy with residual pills) to the visit for possible confirmation of pill counts and the patient understands it is their responsibility to submit to random drug screens to ensure both that the medications prescribed are present, and that no other controlled substances are present. All prescriptions provided today were generated electronically. PLAN: 1. We discussed treatment options with the patient today. The patient believes his medications are beneficial, but he is having increased pain after his work. I encouraged him to try taking 10 mg of methadone in the morning, 5 mg midday at work and then his final 10 mg later in the day to see if this is more beneficial allowing him less pain when he is at home after work and possibly enabling him to be more active. The patient verbalizes understanding. Scripts will be sent today for his methadone 75 tablets for today and 4-week supply. 2. The patient is not needing his gabapentin. He does take this twice a day. We had phoned this in after his trial of Lyrica was ineffective in controlling his pain. 3. The patient will return in 2 months. The patient is seen today in collaboration with Dr. Addy Lainez. <ELECTRONICALLY SIGNED> By: Karlie Lea 05/10/20 0753 [id number] Karlie oconnor
== END ==
LOC: PAIN 06:59
PROVIDERS: ATTEND Clinical Nurse Specialist Adult Health
DX: G62.9 Polyneuropathy, unspecified (principal); G89.29 Other chronic pain; F11.20 Opioid dependence, uncomplicated; Z79.899 Other long term (current) drug therapy

== ENCOUNTER → 2020-07-11 | Outpatient (CLI) | payer OTHER ==
[~2020-07-11] VITALS: Ht 177.8 cm; Wt 105.8 kg
[2020-07-11 10:42] VITALS: BP 127/62
--- NOTE | 2020-07-11 11:02 | NUR ---
Pain Clinic Assessment: 1. History of Osteoarthritis: HANDS History of Rheumatoid Arthritis: Not Applicable 2. Height: 5 ft. 10 in. 177.8 cm. Weight: 233.2 lb. oz. 105.779 kg. Patient's BMI: 33.5 3. Vital Signs: BP: 127/62 Pulse: 60 Resp: 16 Temp: 02 Sat: 96 ECG Mon: 4. Pain Intensity: 10 5. Fall Risk: Dizziness: N Needs help standing or walking: N Fallen in the last 3 months: N Fall risk comments: 6. Patient on Blood Thinner: None 7. History of Hypertension: Y 8. Opioid Therapy greater than 6 weeks: Y Opiate Contract Signed: 09/30/17 9. Risk Assessment Tool Provided: low risk-0 10. Functional Assessment Tool: / 11. Recreational Drug Use: Never Drug Type: Tobacco Use: Current Every Day Smoker Tobacco Type: Amount or Packs/day: < 1/2 PACK How Many Years: 60 Alcohol Use: No Frequency: Quant:
--- NOTE | 2020-07-11 15:28 | HPC ---
[facility] [address] [place] [address] PAIN MANAGEMENT CONSULTATION Name: SHANDA ANTOINE Room #: REG [facility].#: [id number] Admission: 07/11/20 Attend Phys: Karlie Lea Discharge: Date of : 49 Report #: [id number] THIS REPORT FOR: cc: IVONNE CUETO DO Physician not on staff Karlie Lea ~ DATE OF SERVICE: 07/11/2020 CHIEF COMPLAINT: Chronic neuropathic pain. HISTORY OF PRESENT ILLNESS: This is a pleasant 74-year-old gentleman who returns to the pain clinic today for discussion of his opioid medications. He reports increasing pain in his feet bilaterally, significant burning and cramping sensation. Today, he is reporting a pain score of 10/10. He state the last 2 months, his pain has significantly increased and is wondering if he may return to his previous dose of methadone. He had slowly weaned himself down when he was doing treatment for his neuropathy in [place]. He reports he is no longer continuing that, it was too much of a drive to go to [place] 2 times a week for treatment that was not benefitting him long-term. He reports any walking even short distances has increase his pain. He continue to work part-time at the [employer] and when he comes home at night, he sits in the recliner with his legs elevated. ALLERGIES: No known drug allergies. CURRENT LIST OF MEDICATIONS: Methadone 15 mg in the morning and 10 mg at night, gabapentin 600 mg b.i.d. Nucynta, lisinopril, vitamin D, Hytrin, clonidine, amlodipine, lorazepam, omeprazole, ProAir and Symbicort. PQRS: 1. He has significant osteoarthritis in his hands. Denies any rheumatoid arthritis. 2. Height is 5 feet 10 inches, weight is 233, BMI is 33. 3. Vital signs 127/62, pulse is 60, respirations 16, oxygen sat is 96%. Pain score is 10/10. Denies any dizziness, does not need assistance with walking, has not fallen in the last 3 months. The patient is not on any blood thinners, but does take medicine for hypertension. Opioid therapy is greater than 6 weeks; therefore, an opioid signed contract is on the chart. Risk assessment is low. Functional assessment is 49/70. 4. Recreational drug use, he denies. He is a current smoker about 8 cigarettes a day and does not drink alcohol. According to the prescription monitoring system, the patient is filling appropriately for his medications. His morphine mEq is 75 currently and he is seen every 2 months. He does take a benzodiazepine very sparingly and has not had that filled in several months according to the prescription monitoring [address] [address] PAIN MANAGEMENT CONSULTATION Name: SHANDA ANTOINE Room #: REG CLEthan Gillis#: [id number] Admission: 07/11/20 Attend Phys: Karlie Lea Discharge: Date of : 49 Report #: [id number] system. There is a random drug screen on the chart that we had collected earlier this year that is appropriate for his medications. PHYSICAL EXAMINATION: GENERAL: This is alert and orientated, slightly obese 74-year-old gentleman who appears his stated age, placing his current pain score 10/10 today. HEENT: Normocephalic, atraumatic. Extraocular eye muscles are intact. He is wearing a mask. MUSCULOSKELETAL: Discomfort in his lumbar region from previous surgery. He has bilateral leg pain beginning in his calves, symmetrical distribution with light touch discomfort. Pain is increased with ambulation. No edema noted. He does some allodynia noted in his lower extremities from his knees down. He has an antalgic gait. IMPRESSION: 1. Chronic intractable pain with peripheral neuropathy, which is severe. 2. Management of high risk medications. We reviewed the fact that opiate medications are being used to provide analgesia adequate to support activities of daily living, not attempting to achieve a specific pain score on the 0-10 Visual Analog Scale. The current opiate medications are providing sufficient analgesia to allow the patient to participate in activities of daily living. The patient is not exhibiting any aberrant behavior suggestive of drug diversion. The patient is not having any adverse reactions to medications. The patient is not suffering from daytime somnolence or mental acuity changes. The patient is managing opiate-induced constipation with appropriate koex-zcm-ufddhcy agents and dietary considerations. The patient was counseled on concern for caution with operating a motor vehicle while using opiate medications. PLAN: 1. We discussed treatment options with the patient today. He is reporting increasing pain, especially over the last 2 months with any ambulation and after work. He is wondering if he is able to resume methadone 10 mg 3 times a day. This dose he was on previously, but we had titrated him down. I believe due to his increasing pain, we will increase him 10 mg 3 times a day. This will make his morphine milliequivalent to 90. We do follow him on a bimonthly basis. We will trial this for the next 2 months. If it is not beneficial in controlling his pain, we may discuss increasing his gabapentin, which he takes 600 mg b.i.d. 2. We did briefly discuss medical marijuana. He is not interested in this at this time, but just seeking information which I did explain to him about the medical marijuana green card that would be needed. 3. We did discuss a phone call that his had left for us regarding possible suicidal thoughts on his part due to his increasing pain. He denies that he had any suicidal ideations in the past 2 months. He believes his was overly concerned due to his increasing pain. He is hopeful that with increasing [facility] [address] [place] [address] PAIN MANAGEMENT CONSULTATION Name: ELINASHANDAEBER GALLAGHER Room #: REG NEELAM Gillis#: [id number] Admission: 07/11/20 Attend Phys: Karlie Lea Discharge: Date of : 49 Report #: [id number] the methadone that will decrease some of his pain, but he did not believe he had any suicidal thoughts. 4. The patient is seen in collaboration with Dr. Wong today, who will send his medications electronically. <ELECTRONICALLY SIGNED> By: Karlie Lea 07/11/20 [id number] Karlie Lea /nt
== END ==
LOC: PAIN 06:55
PROVIDERS: ATTEND Clinical Nurse Specialist Adult Health
DX: G89.4 Chronic pain syndrome (principal); G62.9 Polyneuropathy, unspecified; Z79.891 Long term (current) use of opiate analgesic

== ENCOUNTER → 2020-09-05 | Outpatient (CLI) | payer OTHER ==
[~2020-09-05] VITALS: Ht 177.8 cm; Wt 106.3 kg
[2020-09-05 13:35] VITALS: BP 154/66
--- NOTE | 2020-09-05 13:44 | NUR ---
Pain Clinic Assessment: 1. History of Osteoarthritis: RIGHT HAND History of Rheumatoid Arthritis: Not Applicable 2. Height: 5 ft. 10 in. 177.8 cm. Weight: 234.4 lb. oz. 106.323 kg. Patient's BMI: 33.6 3. Vital Signs: BP: 154/66 Pulse: 64 Resp: 18 Temp: 02 Sat: 96 ECG Mon: 4. Pain Intensity: 8 5. Fall Risk: Dizziness: N Needs help standing or walking: N Fallen in the last 3 months: N Fall risk comments: 6. Patient on Blood Thinner: None 7. History of Hypertension: Y 8. Opioid Therapy greater than 6 weeks: Y Opiate Contract Signed: 09/30/17 9. Risk Assessment Tool Provided: low risk-0 10. Functional Assessment Tool: / 11. Recreational Drug Use: Never Drug Type: Tobacco Use: Current Every Day Smoker Tobacco Type: Cigarettes Amount or Packs/day: 1/2 How Many Years: 60 Alcohol Use: No Frequency: Quant:
== END ==
LOC: PAIN 06:54
PROVIDERS: ATTEND Anesthesiology Pain Medicine
DX: G62.9 Polyneuropathy, unspecified (principal); F11.20 Opioid dependence, uncomplicated; Z88.8 Allergy status to other drugs, medicaments and biological substances; Z79.899 Other long term (current) drug therapy

== ENCOUNTER → 2020-11-07 | Outpatient (CLI) | payer OTHER ==
[~2020-11-07] VITALS: Ht 177.8 cm; Wt 107.0 kg
[2020-11-07 12:41] VITALS: BP 138/70
--- NOTE | 2020-11-07 12:53 | NUR ---
Pain Clinic Assessment: 1. History of Osteoarthritis: RIGHT HAND History of Rheumatoid Arthritis: Not Applicable 2. Height: 5 ft. 10 in. 177.8 cm. Weight: 235.8 lb. oz. 106.958 kg. Patient's BMI: 33.8 3. Vital Signs: BP: 138/70 Pulse: 55 Resp: 18 Temp: 02 Sat: 98 ECG Mon: 4. Pain Intensity: 8 5. Fall Risk: Dizziness: N Needs help standing or walking: N Fallen in the last 3 months: N Fall risk comments: 6. Patient on Blood Thinner: None 7. History of Hypertension: Y 8. Opioid Therapy greater than 6 weeks: Y Opiate Contract Signed: 09/30/17 9. Risk Assessment Tool Provided: low risk-0 10. Functional Assessment Tool: 11. Recreational Drug Use: Never Drug Type: Tobacco Use: Current Every Day Smoker Tobacco Type: Cigarettes Amount or Packs/day: 1/2 PACK How Many Years: 60 Alcohol Use: No Frequency: Quant:
== END ==
LOC: PAIN 06:53
PROVIDERS: ATTEND Clinical Nurse Specialist Adult Health
DX: G62.9 Polyneuropathy, unspecified (principal); F11.20 Opioid dependence, uncomplicated; F17.200 Nicotine dependence, unspecified, uncomplicated; Z88.8 Allergy status to other drugs, medicaments and biological substances; Z79.899 Other long term (current) drug therapy

== ENCOUNTER → 2020-12-12 | Outpatient (CLI) | payer OTHER ==
[~2020-12-12] VITALS: Ht 177.8 cm; Wt 104.8 kg
[2020-12-12 07:26] VITALS: BP 130/58
--- NOTE | 2020-12-12 07:32 | NUR ---
Pain Clinic Assessment: 1. History of Osteoarthritis: RIGHT HAND History of Rheumatoid Arthritis: Not Applicable 2. Height: 5 ft. 10 in. 177.8 cm. Weight: 231.0 lb. oz. 104.781 kg. Patient's BMI: 33.1 3. Vital Signs: BP: 130/58 Pulse: 56 Resp: 18 Temp: 02 Sat: 97 ECG Mon: 4. Pain Intensity: 6 5. Fall Risk: Dizziness: N Needs help standing or walking: N Fallen in the last 3 months: N Fall risk comments: 6. Patient on Blood Thinner: None 7. History of Hypertension: Y 8. Opioid Therapy greater than 6 weeks: Y Opiate Contract Signed: 09/30/17 9. Risk Assessment Tool Provided: low risk-0 10. Functional Assessment Tool: 49/70 11. Recreational Drug Use: Never Drug Type: Tobacco Use: Current Every Day Smoker Tobacco Type: Cigarettes Amount or Packs/day: 1/2 How Many Years: Alcohol Use: No Frequency: Quant:
== END | disposition home or self-care (01) ==
LOC: PAIN 06:49
PROVIDERS: ATTEND Anesthesiology Pain Medicine
DX: M79.604 Pain in right leg (principal); M79.605 Pain in left leg; G62.9 Polyneuropathy, unspecified; E11.9 Type 2 diabetes mellitus without complications; F32.9 Major depressive disorder, single episode, unspecified; K21.9 Gastro-esophageal reflux disease without esophagitis; Z98.890 Other specified postprocedural states; Z79.899 Other long term (current) drug therapy

== ENCOUNTER → 2020-12-19 | Outpatient (CLI) | payer OTHER ==
[~2020-12-19] VITALS: Ht 177.8 cm; Wt 105.4 kg
[2020-12-19 11:27] VITALS: BP 128/66
--- NOTE | 2020-12-19 11:54 | NUR ---
Pain Clinic Assessment: 1. History of Osteoarthritis: RIGHT HAND History of Rheumatoid Arthritis: Not Applicable 2. Height: 5 ft. 10 in. 177.8 cm. Weight: 232.4 lb. oz. 105.416 kg. Patient's BMI: 33.3 3. Vital Signs: BP: 128/66 Pulse: 60 Resp: 16 Temp: 02 Sat: 96 ECG Mon: 4. Pain Intensity: 3 5. Fall Risk: Dizziness: N Needs help standing or walking: N Fallen in the last 3 months: N Fall risk comments: 6. Patient on Blood Thinner: None 7. History of Hypertension: Y 8. Opioid Therapy greater than 6 weeks: Y Opiate Contract Signed: 09/30/17 9. Risk Assessment Tool Provided: low risk-0 10. Functional Assessment Tool: / 11. Recreational Drug Use: Never Drug Type: Tobacco Use: Current Every Day Smoker Tobacco Type: Amount or Packs/day: How Many Years: Alcohol Use: No Frequency: Quant:
== END ==
LOC: PAIN 07:31
PROVIDERS: ATTEND Anesthesiology Pain Medicine
DX: G62.9 Polyneuropathy, unspecified (principal); F17.200 Nicotine dependence, unspecified, uncomplicated; I10 Essential (primary) hypertension; Z79.899 Other long term (current) drug therapy; Z79.891 Long term (current) use of opiate analgesic

== ENCOUNTER → 2021-03-03 | Outpatient (CLI) | payer OTHER ==
[~2021-03-03] VITALS: Ht 177.8 cm; Wt 105.7 kg
[2021-03-03 12:50] VITALS: BP 115/57
--- NOTE | 2021-03-03 13:09 | NUR ---
Pain Clinic Assessment: 1. History of Osteoarthritis: RIGHT HAND History of Rheumatoid Arthritis: Not Applicable 2. Height: 5 ft. 10 in. 177.8 cm. Weight: 233.0 lb. oz. 105.688 kg. Patient's BMI: 33.4 3. Vital Signs: BP: 115/57 Pulse: 57 Resp: 16 Temp: 02 Sat: 97 ECG Mon: 4. Pain Intensity: 8 5. Fall Risk: Dizziness: N Needs help standing or walking: N Fallen in the last 3 months: N Fall risk comments: 6. Patient on Blood Thinner: None 7. History of Hypertension: Y 8. Opioid Therapy greater than 6 weeks: Y Opiate Contract Signed: 09/30/17 9. Risk Assessment Tool Provided: low risk-0 10. Functional Assessment Tool: 49/ 11. Recreational Drug Use: Never Drug Type: Tobacco Use: Current Every Day Smoker Tobacco Type: Cigarettes Amount or Packs/day: 1/2 How Many Years: Alcohol Use: No Frequency: Quant:
== END ==
LOC: PAIN 01-09 07:12
PROVIDERS: ATTEND Clinical Nurse Specialist Adult Health
DX: G62.9 Polyneuropathy, unspecified (principal); Z79.891 Long term (current) use of opiate analgesic; Z79.899 Other long term (current) drug therapy; F17.200 Nicotine dependence, unspecified, uncomplicated

== ENCOUNTER → 2021-05-08 | Outpatient (CLI) | payer OTHER ==
[~2021-05-08] VITALS: Ht 177.8 cm; Wt 107.0 kg
[2021-05-08 10:18] VITALS: BP 152/60
--- NOTE | 2021-05-08 10:22 | NUR ---
Pain Clinic Assessment: 1. History of Osteoarthritis: RIGHT HAND History of Rheumatoid Arthritis: Not Applicable 2. Height: 5 ft. 10 in. 177.8 cm. Weight: 236.0 lb. oz. 107.049 kg. Patient's BMI: 33.9 3. Vital Signs: BP: 152/60 Pulse: 68 Resp: 16 Temp: 02 Sat: 98 ECG Mon: 4. Pain Intensity: 8 5. Fall Risk: Dizziness: N Needs help standing or walking: N Fallen in the last 3 months: N Fall risk comments: 6. Patient on Blood Thinner: None 7. History of Hypertension: Y 8. Opioid Therapy greater than 6 weeks: Y Opiate Contract Signed: 09/30/17 9. Risk Assessment Tool Provided: low risk-0 10. Functional Assessment Tool: 49/ 11. Recreational Drug Use: Never Drug Type: Tobacco Use: Current Every Day Smoker Tobacco Type: Cigarettes Amount or Packs/day: 1/2 PACK How Many Years: Alcohol Use: No Frequency: Quant:
== END ==
LOC: PAIN 06:52
PROVIDERS: ATTEND Clinical Nurse Specialist Adult Health
DX: G62.9 Polyneuropathy, unspecified (principal); I10 Essential (primary) hypertension; F17.200 Nicotine dependence, unspecified, uncomplicated; Z79.891 Long term (current) use of opiate analgesic; Z79.899 Other long term (current) drug therapy

== ENCOUNTER → 2021-07-03 | Outpatient (CLI) | payer OTHER ==
[~2021-07-03] VITALS: Ht 177.8 cm; Wt 108.0 kg
[~2021-07-03] MED LIST changes: +CONSTULOSE10 GM/15 M PO; +FUROSEMIDE 20 M20 MG PO; +HYDROCODON-ACE1 EA11 PO
[2021-07-03 12:51] VITALS: BP 118/56
--- NOTE | 2021-07-03 13:14 | NUR ---
Pain Clinic Assessment: 1. History of Osteoarthritis: RIGHT HAND History of Rheumatoid Arthritis: Not Applicable 2. Height: 5 ft. 10 in. 177.8 cm. Weight: 238.2 lb. oz. 108.047 kg. Patient's BMI: 34.2 3. Vital Signs: BP: 118/56 Pulse: 60 Resp: 16 Temp: 02 Sat: 97 ECG Mon: 4. Pain Intensity: 8-10 5. Fall Risk: Dizziness: N Needs help standing or walking: N Fallen in the last 3 months: N Fall risk comments: 6. Patient on Blood Thinner: None 7. History of Hypertension: Y 8. Opioid Therapy greater than 6 weeks: Y Opiate Contract Signed: 09/30/17 9. Risk Assessment Tool Provided: low risk-0 10. Functional Assessment Tool: 11. Recreational Drug Use: Never Drug Type: Tobacco Use: Current Every Day Smoker Tobacco Type: Cigarettes Amount or Packs/day: How Many Years: Alcohol Use: No Frequency: Quant:
== END ==
LOC: PAIN 11:04
PROVIDERS: ATTEND Clinical Nurse Specialist Adult Health
DX: G62.89 Other specified polyneuropathies (principal); M25.562 Pain in left knee; F17.200 Nicotine dependence, unspecified, uncomplicated; Z79.899 Other long term (current) drug therapy

== ENCOUNTER → 2021-09-04 | Outpatient (CLI) | payer OTHER | LOC: TELEPC 08:48 → PAIN 14:04 | PROVIDERS: ATTEND Clinical Nurse Specialist Adult Health | DX: G90.09 Other idiopathic peripheral autonomic neuropathy (principal); G57.83 Other specified mononeuropathies of bilateral lower limbs; Z79.899 Other long term (current) drug therapy ==